=== PATIENT | female | born 1985 | race Caucasian/White ===

== ENCOUNTER 2017-08-16 07:32 | Inpatient (IN) ==
--- OUTSIDE RECORDS SUMMARY | 2017-08-16 07:41 | External Medical Summary | Referral Summary ---
:1985 Author Organization [facility] Address [address] [facility] [address] [place] [address] Care Team Providers Name Role Phone No PCP, [facility] Primary Care Physician Encounter [facility] [id number] Date(s): 09/24/15 - 09/24/15 [facility] [address] [place], [place] [address] Discharge Diagnosis: Discharge Disposition: 01-Home or Self Care Attending Physician: Christine Jimenez MD Admitting Physician: Christine Jimenez MD Vital Signs Most recent to oldest [Reference Range]: 1 Blood Pressure [90-140/60-90 mmHg] 120/82 mmHg (09/24/15 3:04 PM) Problem List Condition Effective Dates Status Health Status Informant Anemia(Confirmed) Active Bronchitis(Confirmed) Resolved Previous delivery, Active antepartum.(Confirmed) (Confirmed) 05/26/03 - 2004 Resolved (Confirmed) 01/10/15 Active Allergies, Adverse Reactions, Alerts No Known Medication Allergies Medications Colace Oral, BID, 0 Refill(s) Start Date: 03/20/15 Status: OrderedPrenatal Multivitamins oral tablet tabs, Oral, Daily, 0 Refill(s) Start Date: 03/20/15 Status: Ordered Results No data available for this section Immunizations Vaccine Date Refusal Reason tetanus/diphth/pertuss (Tdap) adult/adol 07/10/15 Procedures Procedure Date Related Diagnosis Body Site delivery Social History Social History Type Response Smoking Status Never smoker Assessment and Plan No data available for this section
--- OUTSIDE RECORDS SUMMARY | 2017-08-16 07:41 | External Medical Summary | Referral Summary ---
:1985 Author Organization [facility], [facility] Address [address] [facility] [address] [place] [address] Care Team Providers Name Role Phone No PCP, States Primary Care Physician Encounter [facility] [id number] Date(s): 10/01/15 - 10/01/15 [facility] [address] [place], [place] [address] Discharge Diagnosis: Discharge Disposition: 01-Home or Self Care Attending Physician: Christine Jimenez MD Admitting Physician: Christine Jimenez MD Vital Signs Most recent to oldest [Reference Range]: 1 Blood Pressure [90-140/60-90 mmHg] 118/78 mmHg (10/01/15 2:52 PM) Problem List Condition Effective Dates Status [...]
--- OUTSIDE RECORDS SUMMARY | 2017-08-16 07:41 | External Medical Summary | Continuity of Care Document ---
:1983 Author Organization [facility] Address [address] [place], [place] [address] Phone Support Name Relationship Address Phone Saroj Rose spouse [address] [phone] [place] [address] Allergies, Adverse Reactions, Alerts Substance Reaction Severity Status No Known Drug Allergies Unknown Active Medications Medication Instructions Dosage Effective Dates Status Comments (start - stop) 28 mg take 1 by Oral route Not Available - Active iron-800 mcg every day tablet Colace 100 mg take 1 capsule by 100 MG - Active capsule oral route every day at bedtime as needed Problems Condition Effective Dates (start - stop) Clinical Status Supervision of other high risk - pregnancies, third trimester Previous Low Transverse - Labor and delivery complicated by oth - cord comp, unsp 29 weeks gestation of - Previous Low Transverse - Encntr screen for infections w sexl - mode of transmiss Encounter for screening for oth - infec/parastc diseases Encounter for suprvsn of normal - , first trimester Encounter for screening of - mother 10 weeks gestation of - Supervision of other high risk - pregnancies, third trimester Labor and delivery complicated by oth - cord comp, unsp 31 weeks gestation of - Supervision of other high risk - pregnancies, third trimester Previous Low Transverse - Labor and delivery complicated by oth - cord comp, unsp 29 weeks gestation of - Previous Low Transverse - Encounter for suprvsn of normal - , second trimester 14 weeks gestation of - Previous Low Transverse - Labor and delivery complicated by oth - cord comp, unsp 23 weeks gestation of - Previous Low Transverse - Labor and delivery complicated by oth - cord comp, unsp Encounter for suprvsn of normal - , second trimester 27 weeks gestation of - Previous Low Transverse - Encounter for suprvsn of normal - , second trimester 18 weeks gestation of - Previous Low Transverse - Labor and delivery complicated by oth - cord comp, unsp Encounter for suprvsn of normal - , second trimester 23 weeks gestation of - Labor and delivery complicated by oth - cord comp, unsp 18 weeks gestation of - Procedures Procedure Date OB Visit No Charge Results Test Name Date and Time Measure Units Reference Range Abnormal Flag Comments Unknown Advance Directives Directive Yes / No Effective Date File Name Unknown Encounters Encounter Practice Location Reason(s) Diagnoses Date Provider Care Team Description For Visit Members Zoya Pal Supervision of Desi Referring In Womens other high risk 5-201 Susan. Provider: Taisha SHEIKH, pregnancies, 8 [address] third Medical Desi L, 1522, trimesterLabor Center [address] [place], and delivery [place], complicated by 120, Center [id number], ot cord Demarco [address], [place] unsp31 weeks Demarco HERBERT, tel: gestation of [phone] [place], [id number] , [place]. [id number]. tel: tel: [phone] Zoya Pal Supervision of Desi Referring In Womens other high risk 1-201 Susan. Provider: Taisha SHEIKH, pregnancies, 8 700 [address] third Medical Desi L, 1522, trimesterPrevious Center [address] [place], Low Transverse , [facility] Betzy HERBERT, C-SectionLabor 120, Center [id number], and delivery [place], [place] 120, [place] complicated by Demarco HERBERT, tel:+ oth cord comp, [id number] [place], unsp29 weeks , [place]. [id number]. gestation of tel: tel: [phone] Zoya Pal Supervision of Desi Referring In Womens Ultrasound other high risk 1-201 Susan. Provider: Health PA, pregnancies, 8 700 Susan [address] third Medical Desi L, 1522, trimesterPrevious Center [address] [place], Low Transverse , [facility] Betzy HERBERT, C-SectionLabor 120, [place] , and delivery [place], [place] 120, [place] complicated by Demarco HERBERT, tel: oth cord comp, [phone] [place], unsp29 weeks , [place]. [id number]. gestation of tel: tel:+ [phone] Zoya Pal Previous Low Mar-2 Desi Referring In Womens Transverse 6-201 Susan. Provider: Health PA, C-SectionLabor 8 700 Susan [address] and delivery Medical Desi L, 1522, complicated by Center [address] [place], spencer cord Dr ron, [facility] KEON, unspEncounter for 120, Center [id number], suprvsn of normal Demarco, [place] 120, [place] , second Demarco HERBERT, tel: [email or web address] weeks [phone] [place], gestation of , [place]. [id number]. tel: tel:+ [phone] Zoya Pal Previous Low Feb-2 Desi Referring In Womens Transverse 8-201 Susan. Provider: Health PA, C-SectionLabor 8 700 Susan [address] and delivery Medical Desi L, 1522, complicated by Center [address] [place], oth cord Dr ron, [facility] KEON, unspEncounter for 120, Center [id number], suprvsn of normal [place], [place] 120, [place] , second Demarco HERBERT, tel:+ [email or web address] weeks [phone] [place], gestation of , [place]. [id number]. tel: tel:[phone] Associates [facility] Previous Low Feb-2 Desi Referring In Womens Ultrasound Transverse 8-201 Susan. Provider: Taisha SHEIKH, C-SectionLabor 8 700 [address] and delivery Medical Desi L, 1522, complicated by Center [address] [place] [address], [facility] cord comp, , [facility] KEON, unsp23 weeks 120, Center [id number], gestation of [place], [facility] 120, [place] Demarco HERBERT, tel:[phone] [place], , [place]. [id number]. tel: tel:[phone] Associates [facility] Labor and Daniel-2 Sharma Referring In Womens delivery 4-201 Dianne. Provider: Taisha SHEIKH, complicated by 8 700 Susan [address] oth cord comp, Medical Desi L, 1522, unsp18 weeks Center [address] [place], gestation of Dr, [facility] KEON, 120, Center [id number], [facility] 120, [place] KEON Demarco, tel:[phone] [place], , [place]. [id number]. tel: tel:[phone] Zoya Pal Previous Low Daniel-2 Desi Referring In Womens Ultrasound Transverse 4-201 Susan. Provider: Taisha SHEIKH, C-SectionEncounte 8 700 Susan [address] r for suprvsn of Medical Desi L, 1522, normal , Center [address] [place] [address], second Dr [facility] KEON, [email or web address] weeks 120, Center [id number], gestation of [facility] 120, [place] KEON Demarco, tel:[phone] [place], , [place]. [id number]. tel: tel:[phone] Associates [facility] Previous Low Dec-2 Desi Referring In Womens Transverse 7-201 Susan. Provider: Taisha SHEIKH, C-SectionEncounte 7 700 [address] PO Box r for suprvsn of Medical Desi L, 1522, normal , Center [address] [place], [facility] , Johnson HERBERT, [id number] weeks 120, [place] [id number], [facility] [place] Demarco HERBERT, tel: [phone] [place], , [place]. [id number]. tel: tel: [phone] Associates [facility] Previous Low Nov- Desi Referring In Womens Transverse 7-201 Susan. Provider: [facility], C-SectionEncntr 7 700 [address] Box screen for Medical Desi L, 1522, infections w sexl Center [address] [place], mode of [place], transmissEncounte 120, [place] [id number], r for screening [facility] 120, [place] for oth Demarco HERBERT, tel: infec/parastc [phone] [place], [facility] , [place]. [id number]. for suprvsn of tel: tel:316 normal , [phone] first trimesterEncounte r for screening of [id number] weeks gestation of Family History Family Member Diagnosis Age At Onset No family history of Colon Cancer No family history of Diabetes No family history of Breast Cancer No family history of Osteoporosis No family history of Pulmonary Embolism No family history of Cardiovascular Disease Father Thyroid Disorder No family history of Venous Thrombosis No family history of Lung Disease No family history of Epilepsy No family history of Uterine Cancer No family history of Stroke No family history of Kidney Disease No family history of Hypertension No family history of Ovarian Cancer Immunizations Vaccine Date Status Comments Tdap completed Source: New Immunization Record Influenza, injectable, completed Source: Public Agency quadrivalent, preservative free, 3 yrs or older Payers Payer name Insurance type Covered republican ID Authorization(s) [facility] [id number] [facility] [id number] Social History Type Description Quantity Date Captured Alcohol Use Details No Caffeine Use Details Unknown Tobacco Use Status Unknown Smoking Status Never smoker Vital Signs Date / Height Weight BMI Pulse Blood Temperature Respiratory Body Head BMI Time: Rate Pressure Rate Surface Circumference percentile Area 177.80 31.6 115/79 lbs 9 mm[Hg] 2:43 kg/m PM eter (2) Chief Complaint And Reason For Visit Unknown Chief Complaint And Reason For Visit Reason For Referral Reason For Referral Unknown Plan Of Care Date Type Action Status Appointment Robina Rose BOOKED Appointment Robina Rose BOOKED Appointment Robina Rose BOOKED Appointment Robina Rose BOOKED Future Order: Radiology Order Ultrasound OB Follow-up ([id number]) Ordered Future Order: Radiology Order Ultrasound, OB Limited ([id number]) Ordered Future Order: Radiology Order Complete OB Ultrasound > 14 Ordered Weeks ([id number]) Date Type Problem Goal Intervention Status Start Date Unknown. History Of Present Illness Encounter Date Complaint History Of Present Illness This patient has no known history of present illness Functional Status Encounter Date Functional Assessment Cognitive Assessment Unknown Medications Administered Medication Instructions Dosage Effective Dates (start - stop) Status Comments Drug Treatment Unknown Instructions Date Instruction Additional Information HIV and other routine tests risk factors identified by history anticipated course of care nutrition and weight gain counseling, special diet toxoplasmosis precautions (cats / raw meat) sexual activity exercise indications for ultrasound influenza vaccine environmental / work hazards travel tobacco (ask, advise, assess, assist and arrange) alcohol illicit / recreational drugs use of any medications (including supplements, vitamins, herbs, OTC drugs) smoking counseling domestic violence seat belt use childbirth classes / hospital facilities hospital registration genetic testing risks Zika virus assessment & precautions new ob handbook [facility] docs
--- OUTSIDE RECORDS SUMMARY | 2017-08-16 07:41 | External Medical Summary | Referral Summary ---
:1985 Author Organization [facility] Address [address] [facility] [address] [place] [address] Care Team Providers Name Role Phone Aneesh Yvonne Sampson Primary Care Physician Encounter [facility] Date(s): 07/26/15 - 07/26/15 [facility] [address] [facility] [facility] [address] [place] [address]- Discharge Diagnosis: Discharge Disposition: 01-Home or Self Care Attending Physician: Christine Jimenez MD Admitting Physician: Christine Jimenez MD Referring Physician: Christine Jimenez MD Vital Signs Most recent to oldest [Reference Range]: 1 Blood Pressure [90-140/60-90 mmHg] 118/70 mmHg (07/26/15 3:25 PM) Problem List Condition Effective Dates Status [...]
--- OUTSIDE RECORDS SUMMARY | 2017-08-16 07:41 | External Medical Summary | Continuity of Care Document ---
:1983 Author Organization [facility] Address [address] [place], [place] [id number] Phone Support Name Relationship Address Phone Saroj Rose spouse [address] [phone] [place] [address] Allergies, Adverse Reactions, Alerts Substance Reaction Severity [...] Effective Dates (start - stop) Clinical Status Previous Low Transverse - Encntr screen for infections w sexl - mode of transmiss Encounter for screening for oth - infec/parastc diseases Encounter for suprvsn of normal - , first trimester Encounter for screening of - mother 10 weeks gestation of - Procedures Procedure Date Unknown Results Test Name Date and Time Measure Units Reference Range Abnormal Flag Comments Unknown Advance Directives Directive Yes / No Effective Date File Name Unknown Encounters Encounter Practice Location Reason(s) Diagnoses Date Provider Care Team Description For Visit Members Zoya Pal Dec-0 Desi In Womens 4-201 Susan. Health [facility], 7 700 [address] Medical [address], [place] [address] Nimisha, [facility] [place], 120, [id number], [facility] [place], tel:[phone] , [place]. tel: [phone] Zoya Pal Previous Low Nov-2 Desi Referring In Womens Transverse 7-201 Susan. Provider: Health [facility] C-SectionEncntr 7 700 Susan [address] screen for Medical Desi L, 1522, infections w sexl Center [address] [place], [place] of [place] Medical KEON, transmissEncounter 120, [place] [id number], for screening for Demarco [facility] 120, oth infec/parastc KEON Demarco, tel: diseasesEncounter [phone] [place] [address] for suprvsn of , [place]. [id number]. normal , tel: tel: first [phone] trimesterEncounter for screening of [id number] weeks gestation of Family History Family Member [...] Ovarian Cancer Immunizations Vaccine Date Status Comments Influenza, injectable, quadrivalent, completed Source: Public [facility] preservative free, 3 yrs or older Payers Payer name Insurance type Covered republican ID Authorization(s) [facility] [id number] Social History Type Description Quantity Date Captured Unknown Vital Signs Date / Height Weight BMI Pulse Blood Temperature Respiratory Body Head BMI Time: Rate Pressure Rate Surface Circumference percentile Area Unknown Chief Complaint And Reason For Visit Unknown Chief Complaint And Reason For Visit Reason For Referral Reason For Referral Unknown Plan Of Care Date Type Action Status Appointment Robina Rose BOOKED Date Type Problem Goal Intervention Status Start [...]
--- OUTSIDE RECORDS SUMMARY | 2017-08-16 07:41 | External Medical Summary | Continuity of Care Document ---
:1983 Author Organization [facility] Address [address] [place], [place] [address] Phone Support Name Relationship Address Phone Saroj Rose spouse [address] [phone] [place] [address] Allergies, Adverse Reactions, Alerts Substance Reaction Severity [...] comp, unsp 29 weeks gestation of - Supervision of other [...] Provider Care Team Description For Visit Members Zyoa Pal Supervision of Desi Referring In Womens other high risk 5-201 Susan. Provider: [facility], pregnancies, 8 700 Susan [address] third Medical Desi L, 1522, trimesterLabor Center [address] [place] [address], and delivery Dr [facility], complicated by 120, [place] [id number], [place] cord comp, Demarco [facility] 120, [place] unsp31 weeks Demarco HERBERT, tel: gestation of [phone] [place], [id number] , [place]. [id number]. tel: tel: [phone] Zoya Pal Desi In Womens 6-201 Susan. [facility], 8 700 [address] Medical 1522, [facility], Dr [facility], 120, [id number], [place], [place], tel:[phone] , [place]. tel: [phone] Zoya Pal Supervision of Desi Referring In Womens other high risk 1-201 Susan. Provider: Taisha SHEIKH, pregnancies, 8 700 Susan [address] third Medical Desi L, 1522, trimesterPrevious Center 700 [place], Low Transverse , [facility] Betzy HERBERT, C-SectionLabor 120, Center [id number], and delivery [place], [facility] 120, [place] complicated by Demarco HERBERT, tel:+ ot cord comp, [phone] [place], unsp29 weeks , [place]. [id number]. gestation of tel: tel: [phone] Zoya Pal Supervision of May- Desi Referring In Womens Ultrasound other high risk 1-201 Susan. Provider: aTisha SHEIKH, pregnancies, 8 700 Susan [address] third Medical Desi L, 1522, trimesterPrevious Center [address] [place], Low Transverse , [facility] Betzy HERBERT, C-SectionLabor 120, [place] [id number], and delivery [facility] 120, [place] complicated by Demarco HERBERT, tel: ot cord comp, [phone] [place], unsp29 weeks , [place]. [id number]. gestation of tel: tel:+ [phone] Zoya Pal Previous Low Mar-2 Desi Referring In Womens Transverse 6-201 Susan. Provider: Taisha SHEIKH, C-SectionLabor 8 700 Susan [address] Box and delivery Medical Desi L, 1522, complicated by Center [address] [place], ot cord comp, Dr [facility] Betzy HERBERT, unspEncounter for 120, [place] [id number], suprvsn of normal [place], [place] 120, [place] , second Demarco HERBERT, tel: [email or web address] weeks [id number] [place], gestation of , [place]. [id number]. tel: tel:+ [phone] Zoya Pal Previous Low Feb-2 Desi Referring In Womens Transverse 8-201 Susan. Provider: Taisha SHEIKH, C-SectionLabor 8 700 Susan [address] and delivery Medical Deis L, 1522, complicated by Center 700 [place], spencer cord Dr ron, [facility] Betzy HERBERT, unspEncounter for 120, Center [id number], suprvsn of normal [place], [place] 120, [place] , second Demarco HERBERT, tel: [email or web address] weeks [id number] [place], gestation of , [place]. [id number]. tel: tel:[phone] Associates [facility] Previous Low Feb-2 Desi Referring In Womens Ultrasound Transverse 8-201 Susan. Provider: Health KORI, C-SectionLabor 8 700 Susan [address] and delivery Medical Desi L, 1522, complicated by Center [facility] Nimisha, [address], [facility] Betzy HERBERT, unsp23 weeks 120, Center [id number], gestation of [place], [facility] 120, [place] Demarco HERBERT, tel:[phone] [place], , [place]. [id number]. tel: tel:[phone] [facility] Labor and Mar- Sharma Referring In Womens delivery 4-201 Dianne. Provider: Taisha SHEIKH, complicated by 8 700 Susan [address] spencer cord comp, Medical Desi L, 1522, unsp18 weeks Center [facility] Nimisha, gestation of Dr, [facility] Betzy HERBERT, 120, Center [id number], [facility] 120, [place] Demarco HERBERT, tel:[phone] [place], , [place]. [id number]. tel: tel:[phone] Associates [facility] Previous Low Mar-2 Desi Referring In Womens Ultrasound Transverse 4-201 Susan. Provider: Taisha SHEIKH, C-SectionEncounte 8 700 Susan PO Box r for suprvsn of Medical Desi L, 1522, normal , Center [facility] Nimisha, second , [facility] Betzy HERBERT, [email or web address] weeks 120, Center [id number], gestation of [place], [facility] 120, [place] Demarco HERBERT, tel:[phone] [place], , [place]. [id number]. tel: tel: [phone] Associates [facility] Previous Low Dec-2 Desi Referring In Womens Transverse 7-201 Susan. Provider: Taisha SHEIKH, C-SectionEncounte 7 700 Susan PO Box r for suprvsn of Medical Desi L, 1522, normal , Center 700 [place], [facility] , Johnson HERBERT, [email or web address] weeks 120, [place] [id number], gestation of [facility] 120, [place] Demarco HERBERT, tel: [phone] [place], , [place]. [id number]. tel: tel: [phone] Associates Pal Previous Low Nov-2 Desi Referring In Womens Transverse 7-201 Susan. Provider: Taisha SHEIKH, C-SectionEncntr 7 700 Susan [address] screen for Medical Desi L, 1522, infections w sexl Center [address] [place], mode of [place], transmissEncounte 120, [place] [id number], r for screening [facility] 120, [place] for oth Demarco HERBERT, tel: infec/parastc [phone] [place], [facility] [place] , . [id number]. for suprvsn of tel: tel:[phone] normal , [phone] first trimesterEncounte r for screening of weeks gestation of Family History Family Member [...] older Payers Payer name Insurance type Covered green party ID Authorization(s) [facility] [id number] [facility] [id number] Social History Type Description Quantity Date Captured [...] Future Order: Radiology Order Ultrasound OB Follow-up ([id number]) Ordered Future Order: Radiology Order Ultrasound, OB Limited ([id number]) Ordered Future Order: Radiology Order Complete OB Ultrasound > 14 Ordered Weeks ([id number]) Date Type Problem Goal Intervention Status Start [...]
--- OUTSIDE RECORDS SUMMARY | 2017-08-16 07:41 | External Medical Summary | Referral Summary ---
:1983 Author Organization [facility] Address [address] [place] [address] Care Team Providers Name Role Phone Aneesh Yvonne Sampson Primary Care Physician Encounter [facility] [id number] Date(s): 05/01/15 - 05/01/15 [facility] [address] [facility] [address] [place], [place] [address] Discharge Diagnosis: care Discharge Disposition: -Home or Self Care Attending Physician: Christine Jimenez MD Vital Signs Most recent to oldest [Reference Range]: 1 Blood Pressure [90-140/60-90 mmHg] 106/74 mmHg (05/01/15 3:02 PM) Problem List Condition Effective Dates Status Health Status Informant Anemia(Confirmed) Active Bronchitis(Confirmed) Resolved (Confirmed) 05/26/03 - 2004 Resolved Allergies, Adverse Reactions, Alerts No Known Medication Allergies Medications Colace Oral, BID, 0 Refill(s) Start Date: 03/20/15 Status: OrderedPrenatal Multivitamins oral tablet tabs, Oral, Daily, 0 Refill(s) Start Date: 03/20/15 Status: Ordered Results No data available for this section Immunizations No data available for this section Procedures Procedure Date Related Diagnosis Body Site delivery Social History Social History Type Response Smoking Status Never smoker Assessment and Plan No data available for this section
--- OUTSIDE RECORDS SUMMARY | 2017-08-16 07:41 | External Medical Summary | Continuity of Care Document ---
:1985 Author Organization [facility] [employer] Address [address] [place], [place] [id number] Phone Support Name Relationship Address Phone Saroj Rose spouse [address] [phone] [place] [address] Allergies, Adverse Reactions, Alerts Substance Reaction Severity [...] stop) Clinical Status Previous Low Transverse - Labor and delivery complicated by oth - cord comp, unsp 23 weeks gestation of - Previous Low Transverse - Encntr screen for infections w sexl - mode of transmiss Encounter for screening for oth - infec/parastc diseases Encounter for suprvsn of normal - , first trimester Encounter for screening of - mother 10 weeks gestation of - Previous Low Transverse [...] weeks gestation of - Procedures Procedure Date Ultrasnd exam, preg uterus, limited Echo exam of heart Doppler color flow mapping Results Test Name Date and Time Measure Units Reference Range Abnormal Flag Comments Unknown Advance Directives Directive Yes / No Effective Date File Name Unknown Encounters Encounter Practice Location Reason(s) Diagnoses Date Provider Care Team Description For Visit [facility] Previous Low Feb-2 Desi Referring In Womens Transverse 8-201 Susan. Provider: Taisha SHEIKH, C-SectionLabor 8 700 Susan PO Box and delivery Medical Desi L, 1522, complicated by Center [address] [place], [address], [facility] Betzy HERBERT, unspEncounter for 120, Center [id number], suprvsn of normal [place], [place] 120, [place] , second Demarco HERBERT, tel:+ [id number] weeks [phone] [place], gestation of , [place]. [id number]. tel: tel: [phone] [facility] Previous Low Feb-2 Desi Referring In Womens Ultrasound Transverse 8-201 Susan. Provider: Taisha SHEIKH, C-SectionLabor 8 700 Susan PO Box and delivery Medical Desi L, 1522, complicated by Center [address] [place], [address], [facility] KEON, unsp23 weeks 120, [place] [id number], gestation of Demarco Johnson 120, [place] Demarco HERBERT, tel: [phone] [place], , [place]. [id number]. tel: tel:[phone] [facility] Labor and Sharma Referring In Womens delivery 4-201 Dianne. Provider: Taisha SHEIKH, complicated by 8 700 Susan PO Box oth cord comp, Medical Desi L, 1522, unsp18 weeks Center Enoc [place], gestation of [place], 120, Center [id number], Demarco [place] 120, [place] Demarco HERBERT, tel:+ [phone] [place], , [place]. [id number]. tel: tel:[phone] [facility] Previous Low Daniel-2 Desi Referring In Womens Ultrasound Transverse 4-201 Susan. Provider: Taisha SHEIKH, C-SectionEncounte 8 700 Susan PO Box r for suprvsn of Medical Desi L, 1522, normal , Center [address] [place], [place] [address]ta, [facility] Johnson [place], [email or web address] weeks 120, Center , gestation of [place], [facility] 120, [place] Demarco HERBERT, tel:[phone] [place], , [place]. [id number]. tel: tel:[phone] [facility] Previous Low Dec-2 Desi Referring In Womens Transverse 7-201 Susan. Provider: Taisha SHEIKH, C-SectionEncounte 7 700 Susan PO Box r for suprvsn of Medical Desi L, 1522, normal , Center [address] [place] [address], [facility] Johnson [place], [email or web address] weeks 120, Center [id number], gestation of [facility] 120, [place] Demarco HERBERT, tel:[phone] [place], , [place]. [id number]. tel: tel:[phone] [facility] Previous Low Nov-2 Desi Referring In Womens Transverse 7-201 Susan. Provider: Taisha SHEIKH, C-SectionEncntr 7 700 Susan PO Box screen for Medical Desi L, 1522, infections w sexl Center [address] [place] [address], mode of [place], transmissEncounte 120, Center [id number], r for screening [facility] 120, [place] for oth Demarco HERBERT, tel:+ infec/parastc [phone] [place], [facility] Center[facility] , [place]. [id number]. for suprvsn of tel: tel:[phone] normal , [phone] first trimesterEncounte r for screening of [email or web address] weeks gestation of Family History Family Member [...] older Payers Payer name Insurance type Covered libertarian ID Authorization(s) [facility] [place] [id number] Social History Type Description Quantity Date Captured Unknown Vital Signs Date / Height Weight BMI Pulse Blood Temperature Respiratory Body Head BMI Time: Rate Pressure Rate Surface Circumference percentile Area Unknown Chief Complaint And Reason For Visit Unknown Chief Complaint And Reason For Visit Reason For Referral Reason For Referral Unknown Plan Of Care Date Type Action Status Appointment Robina Rose BOOKED Future Order: Radiology Order Ultrasound, OB Limited ([id number]) Ordered Future Order: Radiology Order Complete OB Ultrasound > 14 Ordered Weeks ([id number]) Date Type Problem Goal Intervention Status Start [...]
--- OUTSIDE RECORDS SUMMARY | 2017-08-16 07:41 | External Medical Summary | Referral Summary ---
:1983 Author Organization [facility] Address [address] [facility] [address] [place] [address] Care Team Providers Name Role Phone Edenluz marina Yvonne Sampson Primary Care Physician Encounter [facility] Date(s): 09/03/15 - 09/03/15 [facility] [address] [facility] [address] [place] [address]- Discharge Diagnosis: Discharge Disposition: 01-Home or Self Care Attending Physician: Christine Jimenez MD Admitting Physician: Christine Jimenez MD Vital Signs Most recent to oldest [Reference Range]: 1 Blood Pressure [90-140/60-90 mmHg] 124/80 mmHg (09/03/15 3:00 PM) Problem List Condition Effective Dates Status [...]
--- OUTSIDE RECORDS SUMMARY | 2017-08-16 07:41 | External Medical Summary | Continuity of Care Document ---
:1983 Author Organization [facility] Address [address] [place], [place] [address] Phone Support Name Relationship Address Phone Saroj Rose spouse [address] [phone] [place] [address] Allergies, Adverse Reactions, Alerts Substance Reaction Severity [...] comp, unsp 31 weeks gestation of - Previous Low Transverse [...] gestation of - Procedures Procedure Date Ultrasnd preg uterus, flwup/repeat Results Test Name Date and Time Measure Units Reference Range Abnormal Flag Comments Unknown Advance Directives Directive Yes / No Effective Date File Name Unknown Encounters Encounter Practice Location Reason(s) Diagnoses Date Provider Care Team Description For Visit Members Zoya Pal Supervision of Desi Referring In Womens other high risk 5-201 Susan. Provider: Taisha SHEIKH, pregnancies, 8 700 Susan PO Box [facility]ria Medical Desi L, 1522, trimesterLabor Center [address] [place], and delivery [place], complicated by 120, Center [id number], ot cord Demarco [address], [place] unsp31 weeks Demarco HERBERT, tel: gestation of [phone] [place], [address] , [place]. [id number]. tel: tel: [phone] [facility] Supervision of eDsi Referring In Womens other high risk 1-201 Susan. Provider: Taisha SHEIKH, pregnancies, 8 700 [address] PO Box third Medical Desi L, 1522, trimesterPrevious Center [address] [place], Low Transverse , [facility] Betzy HERBERT, C-SectionLabor 120, Center [id number], and delivery [place], [place] 120, [place] complicated by Demarco HERBERT, tel:+ oth cord comp, [phone] [place], unsp29 weeks , [place]. [id number]. gestation of tel: tel:+ [phone] Zoya Pal Supervision of Desi Referring In Womens Ultrasound other high risk 1-201 Susan. Provider: Health PA, pregnancies, 8 700 Susan PO Box third Medical Desi L, 1522, trimesterPrevious Center [address] [place], Low Transverse , [facility] Betzy HERBERT, C-SectionLabor 120, Center [id number], and delivery [place], [place] 120, [place] complicated by Demarco HERBERT, tel:+ oth cord comp, [phone] [place], unsp29 weeks , [place]. [id number]. gestation of tel:+03-31 tel:[phone] Zoya Pal Previous Low Mar-2 Desi Referring In Womens Transverse 6-201 Susan. Provider: Health PA, C-SectionLabor 8 700 [place] PO Box and delivery Medical Desi L, 1522, complicated by Center [address] [place], [address], [facility] KEON, unspEncounter for 120, Center [id number], suprvsn of normal Demarco, [place] 120, [place] , second Demarco HERBERT, tel:+ [email or web address] weeks [phone] [place], gestation of , [place]. [id number]. tel: tel:+ [phone] Zoya Pal Previous Low Feb-2 Desi Referring In Womens Transverse 8-201 Susan. Provider: Health PA, C-SectionLabor 8 700 Susan PO Box and delivery Medical Desi L, 1522, complicated by Center [address] [place], spencer cord Dr ron, [facility] KEON, unspEncounter for 120, Center [id number], suprvsn of normal [place], [place] 120, [place] , second Demarco HERBERT, tel:+ [email or web address] weeks [id number] [place], gestation of , [place]. [id number]. tel: tel:[phone] [facility] Previous Low Feb-2 Desi Referring In Womens Ultrasound Transverse 8-201 Susan. Provider: Taisha SHEIKH, C-SectionLabor 8 700 [place] PO Box and delivery Medical Desi L, 1522, complicated by Center [address] [place], [facility] cord comp, , [facility] KEON, unsp23 weeks 120, Center [id number], gestation of [place], [facility] 120, [place] Demarco HERBERT, tel:[phone] [place], , [place]. [id number]. tel: tel:[phone] [facility] Labor and Daniel-2 Sharma Referring In Womens delivery 4-201 Dianne. Provider: Taisha SHEIKH, complicated by 8 700 [place] PO Box oth cord comp, Medical Desi L, 1522, unsp18 weeks Center [address] [place], gestation of Dr, [facility] KEON, 120, Center [id number], [facility] 120, [place] Demarco HERBERT, tel:[phone] [place], , [place]. [id number]. tel: tel:[phone] Zoya Pal Previous Low Daniel-2 Desi Referring In Womens Ultrasound Transverse 4-201 Susan. Provider: Taisha SHEIKH, C-SectionEncounte 8 700 [place] PO Box r for suprvsn of Medical Desi L, 1522, normal , Center [address] [place], [facility] , [facility] KEON, [id number] weeks 120, Center [id number], gestation of [place], [facility] 120, [place] Demarco HERBERT, tel:[phone] [place], , [place]. [id number]. tel: tel:[phone] [facility] Previous Low Dec-2 Desi Referring In Womens Transverse 7-201 Susan. Provider: Taisha SHEIKH, C-SectionEncounte 7 700 [place] PO Box r for suprvsn of Medical Desi L, 1522, normal , Center [address] [place], second [place], [email or web address] weeks 120, [place] [id number], [facility], [place] Demarco HERBERT, tel: [phone] [place], , [place]. [id number]. tel: tel: [phone] [facility] Previous Low Desi Referring In Womens Transverse 7-201 Susan. Provider: Health PA, C-SectionEncntr 7 700 Susan PO Box screen for Medical Desi L, 1522, infections w sexl Center [address] [place], mode of [place], transmissEncounte 120, [place] [id number], r for screening [facility] 120, for oth Demarco HERBERT, tel: infec/parastc [phone] [place], [facility] , . [id number]. for suprvsn of tel: tel: normal , [phone] first trimesterEncounte r for screening of [email or web address] weeks gestation of Family History Family Member [...] name Insurance type Covered republican ID Authorization(s) [facility] [id number] [facility] [id number] Social History Type Description Quantity Date Captured [...] Future Order: Radiology Order Ultrasound OB Follow-up ([id number]) Ordered Future Order: Radiology Order Ultrasound, OB Limited ([id number]) Ordered Future Order: Radiology Order Complete OB Ultrasound > 14 Ordered Weeks ([id number]) Date Type Problem Goal Intervention Status Start [...]
--- OUTSIDE RECORDS SUMMARY | 2017-08-16 07:42 | External Medical Summary | Referral Summary ---
:1983 Author Organization [facility] Address [address] [facility] [address] [place] [address] Care Team Providers Name Role Phone Aneesh Yvonne Sampson Primary Care Physician Encounter [facility] Date(s): 09/10/15 - 09/10/15 [facility] [address] [facility] [address] [place] [address]- Discharge Diagnosis: Discharge Disposition: 01-Home or Self Care Attending Physician: Christine Jimenez MD Admitting Physician: Christine Jimenez MD Vital Signs Most recent to oldest [Reference Range]: 1 Blood Pressure [90-140/60-90 mmHg] 110/64 mmHg (09/10/15 2:54 PM) Problem List Condition Effective Dates Status [...]
--- OUTSIDE RECORDS SUMMARY | 2017-08-16 07:42 | External Medical Summary | Referral Summary ---
:1983 Author Organization [facility] Address [address] [place] [address] Care Team Providers Name Role Phone Aneesh Yvonne Sampson Primary Care Physician Encounter [facility] [id number] Date(s): 06/05/15 - 06/05/15 [facility] [address] [facility] [address] [place], [place] [address] Discharge Diagnosis: Discharge Disposition: 01-Home or Self Care Attending Physician: Christine Jimenez MD Admitting Physician: Christine Jimenez MD Vital Signs Most recent to oldest [Reference Range]: 1 Blood Pressure [90-140/60-90 mmHg] 118/68 mmHg (06/05/15 2:52 PM) Problem List Condition Effective Dates [...]
--- OUTSIDE RECORDS SUMMARY | 2017-08-16 07:42 | External Medical Summary | Referral Summary ---
:1983 Author Organization [facility] Address [address] [place] [address] Care Team Providers Name Role Phone Yvonne Melendrez Primary Care Physician Encounter [facility] [id number] Date(s): 05/30/15 - 05/30/15 [facility] [address] [facility] [address] [place] [address] [place] Discharge Diagnosis: Encounter for anatomic survey Discharge Diagnosis: Previous delivery, antepartum. Discharge Disposition: -Home or Self Care Attending Physician: John Mcdonald MD Admitting Physician: John Mcdonald MD Referring Physician: Christine Jimenez MD Vital Signs Most recent to oldest [Reference Range]: 1 Peripheral Pulse Rate [60-100 bpm] 86 bpm (05/30/15 4:06 PM) Blood Pressure [90-140/60-90 mmHg] 118/68 mmHg (05/30/15 4:06 PM) Problem List Condition Effective Dates Status [...] Smoking Status Never smoker Assessment and Plan Extracted from: Title: Office Visit Note Author: John Mcdonald MD Date: 05/30/15 Assessment/Plan Encounter for anatomic survey Results and limitation of exam discussed with patient. No additional follow up requested. Previous delivery, antepartum. TOLAC vs RLTCS as desired. Thank you for allowing me to participate in this patient's care and evaluation. I spent5 minutes [id number] with the patient at the time of this appointment of which greater than 50 percent was spent counseling and coordinating care.
--- OUTSIDE RECORDS SUMMARY | 2017-08-16 07:42 | External Medical Summary | Referral Summary ---
:1983 Author Organization [facility] Address [address] [facility] [address] [place] [address] Care Team Providers Name Role Phone No PCP, [facility] [place] [facility] Primary Care Physician Encounter [facility] [id number] Date(s): 10/08/15 - 10/08/15 [facility] [address] [facility] [address] [place] [address]- Discharge Diagnosis: Discharge Disposition: 01-Home or Self Care Attending Physician: Christine Jimenez MD Admitting Physician: Christine Jimenez MD Vital Signs Most recent to oldest [Reference Range]: 1 Blood Pressure [90-140/60-90 mmHg] 132/82 mmHg (10/08/15 2:54 PM) Problem List Condition Effective Dates [...]
--- OUTSIDE RECORDS SUMMARY | 2017-08-16 07:42 | External Medical Summary | Referral Summary ---
:1983 Author Organization [facility] Address [address] [place] [address] Care Team Providers Name Role Phone Aneesh Yvonne Sampson Primary Care Physician Encounter [facility] [id number] Date(s): 04/05/15 - 04/05/15 [facility] [address] [facility] [address] [place] [address]- Discharge Diagnosis: First trimester screening Discharge Diagnosis: Previous delivery, antepartum Discharge Disposition: -Home or Self Care Attending Physician: John Mcdonald MD Admitting Physician: John Mcdonald MD Referring Physician: Christine Jimenez MD Vital Signs Most recent to oldest [Reference Range]: 1 Blood Pressure [90-140/60-90 mmHg] 128/75 mmHg (04/05/15 9:33 AM) Problem List Condition Effective Dates Status Health [...]
--- OUTSIDE RECORDS SUMMARY | 2017-08-16 07:42 | External Medical Summary | Continuity of Care Document ---
:1983 Author Organization [facility] [facility] Address [address] [place], [place] [address] Phone Support Name Relationship Address Phone Saroj Rose spouse [address] [phone] [place] [address] Allergies, Adverse Reactions, Alerts Substance Reaction Severity [...] second trimester 23 weeks gestation of - Previous Low [...] second trimester 18 weeks gestation of - Labor and delivery [...] For Visit Members [facility] Previous Low Apr-2 Desi Referring In Womens Transverse 8-201 Susan. Provider: Taisha SHEIKH, C-SectionLabor 8 700 [place] PO Box and delivery Medical Desi L, 1522, complicated by [place] [address], [facility] Betzy HERBERT, unspEncounter for 120, [place] [id number], suprvsn of normal [place], [facility] 120, [place] , second Demarco HERBERT, tel: [email or web address] weeks [place], gestation of , [place]. [id number]. tel: tel: [phone] [facility] Previous Low b-2 Desi Referring In Womens Ultrasound Transverse 8-201 Susan. Provider: Taisha SHEIKH, C-SectionLabor 8 700 [place] PO Box and delivery Medical Desi L, 1522, complicated by Center 700 [place], [address], [place] HERBERT, unsp23 weeks 120, [place] [id number], gestation of [facility] 120, [place] Demarco HERBERT, tel:[phone] [place], , [place]. [id number]. tel: tel:[phone] [facility] Labor and Sharma Referring In Womens delivery 4-201 Dianne. Provider: Taisha SHEIKH, complicated by 8 700 [place] PO Box oth cord comp, Medical Desi L, 1522, unsp18 weeks Center [address] [place], gestation of [place], 120, Center [id number], [facility], [place] Demarco HERBERT, tel:[phone] [place], , [place]. [id number]. tel: tel:+ [phone] [facility] Previous Low Daniel-2 Desi Referring In Womens Ultrasound Transverse 4-201 Susan. Provider: Taisha SHEIKH, C-SectionEncounte 8 700 [place] PO Box r for suprvsn of Medical Desi L, 1522, normal , Center [address] [place], [place] [address]ta, [facility] Johnson [place], [id number] weeks 120, Center , gestation of [facility] 120, [place] Demarco HERBERT, tel: [phone] [place], , [place]. [id number]. tel: tel:[phone] [facility] Previous Low Dec-2 Desi Referring In Womens Transverse 7-201 Susan. Provider: Taisha SHEIKH, C-SectionEncounte 7 700 Susan PO Box r for suprvsn of Medical Desi L, 1522, normal , Center [address] [place] [address], [facility] Johnson [place], [email or web address] weeks 120, [place] , gestation of [facility] 120, [place] Demarco HERBERT, tel:+ [phone] [place], , [place]. [id number]. tel: tel:[phone] [facility] Previous Low Nov-2 Desi Referring In Womens Transverse 7-201 Susan. Provider: Taisha SHEIKH, C-SectionEncntr 7 700 Susan PO Box screen for Medical Desi L, 1522, infections w sexl Center [address] [place] [address], mode of [place], transmissEncounte 120, [place] [id number], r for screening [facility] 120, [place] for oth Demarco HERBERT, tel: infec/parastc [phone] [place], [facility] , . [id number]. for suprvsn of tel: tel:[phone] normal , [phone] first trimesterEncounte r for screening of [id number] weeks gestation of Family History Family Member [...] older Payers Payer name Insurance type Covered constitution party ID Authorization(s) [facility] KEON [id number] Social History Type Description Quantity Date Captured Alcohol Use Details No Caffeine Use Details coffee 3 cups per day Tobacco Use Status Never smoked tobacco Smoking Status Never smoker Vital Signs Date [...] Future Order: Radiology Order Ultrasound, OB Limited ([id number]) Ordered Future Order: Radiology Order Complete OB Ultrasound > 14 Ordered Weeks ([id number]) Date Type Problem Goal Intervention Status Start [...]
--- OUTSIDE RECORDS SUMMARY | 2017-08-16 07:42 | External Medical Summary | Referral Summary ---
:1983 Author Organization [facility] Address [address] [facility] [address] [place] [address] Care Team Providers Name Role Phone No PCP, [facility] [place] Primary Care Physician Encounter [facility] [id number] Date(s): 09/17/15 - 09/17/15 [facility] [address] [facility] [address] [place] [address]- Discharge Diagnosis: Discharge Disposition: 01-Home or Self Care Attending Physician: Christine Jimenez MD Admitting Physician: Christine Jimenez MD Vital Signs Most recent to oldest [Reference Range]: 1 Blood Pressure [90-140/60-90 mmHg] 120/68 mmHg (09/17/15 3:16 PM) Problem List Condition Effective Dates Status [...]
--- OUTSIDE RECORDS SUMMARY | 2017-08-16 07:42 | External Medical Summary | Continuity of Care Document ---
:1985 Author Organization [facility] Address [address] [place], [place] [id number] Phone Support Name Relationship Address Phone Saroj Rose spouse [address] [phone] [place] [address] Allergies, Adverse Reactions, Alerts Substance Reaction Severity [...] weeks gestation of - Procedures Procedure Date Initial OB Visit No Charge - ETL TESTER OB Panel With An HIV Venpnctr fngr/heel/ear stick routne Urine Culture Infct antign, chlamydia trac, ampl Neisseria Gonorrhoeae, Amplification Results Test Name Date and Time Measure Units Reference Range Abnormal Flag Comments Panel Description: OBSTETRIC PANEL WHITE BLOOD CELL 6.0 Thousand/uL 3.8-10.8 N COUNT 16:29:00 RED BLOOD CELL 4.05 Million/uL 3.80-5.10 N COUNT 16:29:00 HEMOGLOBIN 13.2 g/dL 11.7-15.5 N 16:29:00 HEMATOCRIT 37.6 % 35.0-45.0 N 16:29:00 MCV 92.8 fL 80.0-100.0 N 16:29:00 MCH 32.6 pg 27.0-33.0 N 16:29:00 MCHC 35.1 g/dL 32.0-36.0 N 16:29:00 RDW 11.8 % 11.0-15.0 N 16:29:00 PLATELET COUNT 179 Thousand/uL 140-400 N 16:29:00 MPV 10.7 fL 7.5-12.5 N 16:29:00 ABSOLUTE 3972 cells/uL 3483-7114 N NEUTROPHILS 16:29:00 ABSOLUTE 1590 cells/uL 850-3900 N LYMPHOCYTES 16:29:00 ABSOLUTE 318 cells/uL 200-950 N MONOCYTES 16:29:00 ABSOLUTE 102 cells/uL 15-500 N EOSINOPHILS 16:29:00 ABSOLUTE 18 cells/uL 0-200 N BASOPHILS 16:29:00 NEUTROPHILS 66.2 % N 16:29:00 LYMPHOCYTES 26.5 % N 16:29:00 MONOCYTES 5.3 % N 16:29:00 EOSINOPHILS 1.7 % N 16:29:00 BASOPHILS 0.3 % N 16:29:00 ANTIBODY SCREEN, NO ANTIBODIES N RBC W/REFL ID, 16:29:00 DETECTED Reference range TITER AND AG No antibodies detected This assay is a screening test for the detection of red blood cell antibodies. The test is not to be used for pretransfusion screening or for the medical management of an alloimmunized . ABO GROUP O 16:29:00 RH TYPE RH(D) 16:29:00 POSITIVE RPR (DX) W/REFL NON-REACTIVE NON-REACTIV N TITER AND 16:29:00 E CONFIRMATORY TESTING HEPATITIS B NON-REACTIVE NON-REACTIV N SURFACE ANTIGEN 16:29:00 E RUBELLA ANTIBODY 5.25 index N Index (IGG) 16:29:00 Interpretation ----- <0.90 Not consistent with Immunity 0.90-0.99 Equivocal > or=1.00 Consistent with Immunity The presence of rubella IgG antibody suggests immunization or past or current infection withrubella virus.Test performed at [facility] [place] [address]Hgetqjk r: MIGUEL AHN DO,MPH Panel Description: HIV 1/2 ANTIGEN/ANTIBODY,FOURTH GENERATION W/RFL HIV NON-REACTIVE NON-REACTIVE N HIV-1 antigen and HIV-1/HIV- 2 antibodies were AG/AB, 16:29:00 notdetected. There is no laboratory evidence of 4TH GEN HIVinfection. PLEASE NOTE: This information has been disclosed toyou from records whose confidentiality may beprotected by state law. If your state requires suchprotection, then the state law prohibits you frommaking any further disclosure of the informationwithout the specific written consent of the personto whom it pertains, or as otherwise permitted by law.A general authorization for the release of medical orother information is NOT sufficient for this purpose. For additional information please refer tohttp://education.Budge/faq/OJC525(This link is being provided for informational/educational purposes only.) The performance of this assay has not been clinicallyvalidated in patients less than 2 years old. REPORT COMMENT:FASTING:NOTest performed at [facility] [place] [address]Jgjncfcy: MIGUEL AHN DO,MPH Panel Description: Bacteria identified in Urine by Culture CULTURE, URINE, 16:32:00 SEE NOTE CULTURE, URINE, ROUTINE ROUTINE MICRO NUMBER: [id number] TEST STATUS: FINAL SPECIMEN SOURCE: URINE, CLEAN CATCH SPECIMEN QUALITY: ADEQUATE RESULT: No GrowthREPORT COMMENT:RFASTING:UNKNOWNTest performed at [facility] [address]Nnhjftww: MIGUEL AHN DO,MPH Panel Description: CHLAMYDIA/N. GONORRHOEAE RNA, TMA CHLAMYDIA NOT DETECTED NOT DETECTED N TRACHOMATIS RNA, 16:30:00 TMA NEISSERIA NOT DETECTED NOT DETECTED N GONORRHOEAE RNA, 16:30:00 TMA [id number] SEE NOTE This test was 16:30:00 performed using the APTIMA COMBO2 Assay([employer] The analytical performance characteristics of this assay, when used to test SurePath specimens havebeen determined by [employer]. REPORT COMMENT:FASTING:UNKNO WNTest performed at [facility] [id number] [place] [address]Ckaltogc: MIGUEL AHN DO,MPH Panel Description: Pap Smear With HPV Reflex If ASCUS Document Pap Smear 15:00:00 See scanned report Advance Directives Directive Yes / No Effective Date File Name Unknown Encounters Encounter Practice Location Reason(s) Diagnoses Date Provider Care Team Description For Visit Members [facility] Carrasco [facility] Desi Referring In Womens Transverse 7-201 Susan. Provider: Health PA, C-SectionEncntr [address] screen for Medical Desi L, 1522, infections w sexl [address] [place], mode of [facility], transmissEncount 120, [place] [id number], for screening for [place] 120, [place] ot infec/parastc Demarco HERBERT, tel:+ diseasesEncounter [phone] [place], [phone] for suprvsn of , [place]. [id number]. normal , tel: tel: [facility] [phone] trimesterEncounter for screening of [id number] weeks gestation of Family History Family Member [...] Insurance type Covered constitution party ID Authorization(s) LEAH MCMANUS [id number] Social History Type Description Quantity Date Captured Alcohol Use Details No Caffeine Use Details coffee 3 cups per day Tobacco Use Status Never smoked tobacco Smoking Status Never smoker Non-Smoking Tobacco Use : No Details Available : No Details Available Details Vital Signs Date / Height Weight BMI Pulse Blood Temperature Respiratory Body Head BMI Time: Rate Pressure Rate Surface Circumference percentile Area 152.90 27.3 122/77 2017 lbs 0 mm[Hg] 4:35 kg/m PM eter (2) Chief Complaint And [...]
--- OUTSIDE RECORDS SUMMARY | 2017-08-16 07:42 | External Medical Summary | Continuity of Care Document ---
:1985 Author Organization [facility] Address [address] [place], [place] [address] Phone Support Name Relationship Address Phone Saroj Rose spouse [address] [phone] [place] [address] Allergies, Adverse Reactions, Alerts Substance Reaction Severity [...] stop) Clinical Status Previous Low Transverse - Encounter for suprvsn [...] Team Description For Visit Members Zoya [place] Previous Low Desi Referring In [facility] Transverse 7-201 Susan. Provider: Taisha SHEIKH, C-SectionEncounter [address] for suprvsn of Medical Desi L, 1522, normal , Center [address] [place], second [id number], [facility], weeks gestation of 120, Center [id number], Demarco, [place] 120, [place] Demarco HERBERT, tel: [phone] [place], , [place]. [id number]. tel: tel:[phone] [facility] Previous Low Desi Referring In Womens Transverse 7-201 Susan. Provider: [facility], C-SectionEncntr 7 [address] screen for Medical Desi L, 1522, infections w sexl Center [address] [place], mode of Dr, [facility] Betzy [place], transmissEncounter 120, Center [id number], for screening for Demarco, [place] 120, [place] oth infec/parastc Demarco HERBERT, tel: diseasesEncounter [phone] [place], for suprvsn of , [place]. [id number]. normal , tel: tel: first [phone] [facility] gestation of Family [...] type Covered constitution party ID Authorization(s) [facility] [id number] Social History Type Description Quantity Date Captured [...] Robina Rose BOOKED Appointment Robina Rose BOOKED Date Type Problem [...]
--- OUTSIDE RECORDS SUMMARY | 2017-08-16 07:42 | External Medical Summary | Referral Summary ---
:1985 Author Organization [facility] Address [address] [facility] [address] [place] [address] Care Team Providers Name Role Phone Aneesh Yvonne Sampson Primary Care Physician Encounter [facility] Date(s): 08/05/15 - 08/05/15 [facility] [address] [facility] [address] [place] [address]- Discharge Diagnosis: Supervision of normal Discharge Disposition: 01-Home or Self Care Attending Physician: Sherry Renee PA-C Admitting Physician: Sherry Renee PA-C Vital Signs Most recent to oldest [Reference Range]: 1 Blood Pressure [90-140/60-90 mmHg] 130/68 mmHg (08/05/15 3:11 PM) Problem List Condition Effective Dates Status [...]
--- OUTSIDE RECORDS SUMMARY | 2017-08-16 07:42 | External Medical Summary | Referral Summary ---
:1985 Author Organization [facility] Address [address] [facility] [address] [place] [address] Care Team Providers Name Role Phone Aneesh Yvonne Sampson Primary Care Physician Encounter [facility] [id number] Date(s): 03/20/15 - 03/20/15 [facility] [address] [place] [address]- Discharge Diagnosis: care Discharge Disposition: -Home or Self Care Attending Physician: Christine Jimenez MD Admitting Physician: Christine Jimenez MD Vital Signs Most recent to oldest [Reference Range]: 1 Blood Pressure [90-140/60-90 mmHg] 112/74 mmHg (03/20/15 3:20 PM) Problem List Condition Effective Dates Status Health Status Informant Anemia(Confirmed) Active Bronchitis(Confirmed) Resolved (Confirmed) 05/26/03 - 2004 Resolved Allergies, Adverse Reactions, Alerts No Known Medication Allergies Medications Colace Oral, BID, 0 Refill(s) Start Date: 03/20/15 Status: OrderedPrenatal Multivitamins oral tablet tabs, Oral, Daily, 0 Refill(s) Start Date: 03/20/15 Status: Ordered Results Hematology Most recent to oldest [Reference Range]: 1 WBC [4.8-10.8 10*3/uL] 6.3 10*3/uL (03/20/15 4:03 PM) RBC [4.00-5.20] 4.10 (03/20/15 4:03 PM) Hgb [12.0-16.0 gm/dL] 13.0 gm/dL (03/20/15 4:03 PM) Hct [37.0-47.0 %] 35.8 % *LOW* (03/20/15 4:03 PM) MCV [82.0-99.0 fL] 87.3 fL (03/20/15 4:03 PM) MCH [27.0-32.0 pg] 31.7 pg (03/20/15 4:03 PM) MCHC [32.0-36.0 gm/dL] 36.3 gm/dL *HI* (03/20/15 4:03 PM) RDW [11.5-14.5 %] 12.1 % (03/20/15 4:03 PM) Platelet [150-400 10*3/uL] 184 10*3/uL (03/20/15 4:03 PM) MPV [8.8-14.8 fL] 10.9 fL (03/20/15 4:03 PM) Immature Granulocytes [0.0-1.0 %] 0.0 % (03/20/15 4:03 PM) Neutrophils [51-75 %] 69 % (03/20/15 4:03 PM) Lymphocytes [20-46 %] 24 % (03/20/15 4:03 PM) Monocytes [4-11 %] 6 % (03/20/15 4:03 PM) Eosinophils [0-4 %] 2 % (03/20/15 4:03 PM) Basophils [0-2 %] 0 % (03/20/15 4:03 PM) Neutro Absolute [1.90-7.00 10*3] 4.33 10*3 (03/20/15 4:03 PM) Lymph Absolute [0.80-3.30 10*3] 1.50 10*3 (03/20/15 4:03 PM) Prentiss Absolute [0.30-1.00 10*3] 0.38 10*3 (03/20/15 4:03 PM) Eos Absolute [0.00-0.50 10*3] 0.10 10*3 (03/20/15 4:03 PM) Baso Absolute [0.00-0.20 10*3] 0.01 10*3 (03/20/15 4:03 PM) Chemistry Most recent to oldest [Reference Range]: 1 Hep Bs Ag Negative (03/20/15 4:03 PM) HIV 1 and 2 Abs Negative (03/20/15 4:03 PM) Urinalysis Most recent to oldest [Reference Range]: 1 UA Color Yellow (03/20/15 4:03 PM) UA Appear Clear (03/20/15 4:03 PM) UA pH [5.0-8.0] 6.0 (03/20/15 4:03 PM) UA Leuk Est [Negative] Negative (03/20/15 4:03 PM) UA Nitrite [Negative] Negative (03/20/15 4:03 PM) UA Protein [Negative] Negative (03/20/15 4:03 PM) UA Glucose [Negative] Negative (03/20/15 4:03 PM) UA Ketones [Negative] Negative (03/20/15 4:03 PM) UA Urobilinogen [<1.0 mg/dL] 0.2 mg/dL (03/20/15 4:03 PM) UA Bili [Negative] Negative (03/20/15 4:03 PM) UA Blood [Negative] Negative (03/20/15 4:03 PM) UA Spec Grav [1.003-1.030] 1.013 (03/20/15 4:03 PM) Type Clean Catch (03/20/15 4:03 PM) UA WBC [0-4] 0-2 (03/20/15 4:03 PM) UA RBC [0-4] 0-4 (03/20/15 4:03 PM) Epithelial Cells 0-2 (03/20/15 4:03 PM) Blood Bank Results Most recent to oldest [Reference Range]: 1 ABO/Rh O POS (03/20/15 4:03 PM) Antibody Screen Tube NEG (03/20/15 4:03 PM) Microbiology Reports TEST:Affirm Vaginitis Panel STATUS:Auth (Verified) BODY SITE: SOURCE:Vaginal COLLECTED DATE/TIME:03/20/15 4:03 PMAffirm Vaginitis PanelNegative for Trichomonas vaginalis Negative for Verito species Negative for Gardnerella vaginalis Immunizations No data available for this section Procedures Procedure Date Related Diagnosis Body Site delivery Social History Social History Type Response Smoking Status Never smoker Assessment and Plan No data available for this section
--- OUTSIDE RECORDS SUMMARY | 2017-08-16 07:42 | External Medical Summary | Continuity of Care Document ---
:1985 Author Organization [facility] Address [address] [place], [place] [address] Phone Support Name Relationship Address Phone Saroj Rose spouse [address] [phone] [place] [address] Allergies, Adverse Reactions, Alerts Substance Reaction Severity [...] Team Description For Visit Members [facility] Labor and Daniel-2 Sharma Referring In Womens delivery 4-201 Dianne. Provider: Taisha SHEIKH, complicated by [address] oth cord comp, Medical Desi L, 1522, [id number] weeks Center [facility] Nimisha, gestation of Dr [facility] Betzy HERBERT, 120, Center [id number], [place], [facility] 120, [place] KSDemarco, tel:+ [phone] [place], , [place]. [id number]. tel: tel:+[phone] [facility] Previous Low Daniel-2 Desi Referring In Womens Ultrasound Transverse 4-201 Susan. Provider: Taisha SHEIKH, C-SectionEncounte [address] r for suprvsn of Medical Desi L, 1522, normal , Center [address] [place] [address], [place] [facility] KEON, [email or web address] weeks 120, Center , gestation of [place], [facility] 120, [place] Demarco HERBERT, tel:+ [phone] [place], , [place]. [id number]. tel: tel:+[phone] [facility] Daniel-2 Desi In Womens 4-201 Susan. Taisha SHEIKH, [address] Medical 1522, Center Nimisha, Dr [facility], 120, , [place], [place], tel:[phone] , [place]. tel: [phone] Zoya Pal Previous Low Dec-2 Desi Referring In Womens Transverse 7-201 Susan. Provider: Taisha SHEIKH, C-SectionEncounte 7 [address] r for suprvsn of Medical Desi L, 1522, normal , Center [address] [place] [address], [place], [email or web address] weeks 120, Center , gestation of [facility] 120, [place] Demarco HERBERT, tel:[phone] [place], , [place]. [id number]. tel: tel:+[phone] [facility] Previous Low Nov-2 Desi Referring In Womens Transverse 7-201 Susan. Provider: Taisha SHEIKH, C-SectionEncntr 7 [address] screen for Medical Desi L, 1522, infections w sexl Center 700 dim[address] [place] of [place] [facility] KEON, transmissEncounte [facility] [place] [id number], r for screening [place] [address] [place] [address] for oth EKONDemarco, tel:2 infec/parastc [phone] [place], [id number] [facility] [id number]. for suprvsn of tel: tel: normal , [phone] first trimesterEncounte r for screening of [id number] weeks gestation of Family History Family Member [...] name Insurance type Covered libertarian ID Authorization(s) [facility] [id number] Social History Type Description Quantity Date Captured [...] Robina Rose BOOKED Future Order: Radiology Order Complete OB Ultrasound > 14 Ordered Weeks (34032) Date Type Problem Goal Intervention Status Start [...]
--- OUTSIDE RECORDS SUMMARY | 2017-08-16 07:42 | External Medical Summary | Referral Summary ---
:1985 Author Organization [facility] Address [address] [facility] [address] [place] [address] Care Team Providers Name Role Phone No PCP, States Primary Care Physician Encounter [facility] [id number] Date(s): 10/29/15 - 10/29/15 [facility] [address] [facility] [address] [place] [address]- Discharge Disposition: 01-Home or Self Care Attending Physician: Christine Jimenez MD Admitting Physician: Christine Jimenez MD Vital Signs Most recent to oldest [Reference Range]: 1 Blood Pressure [90-140/60-90 mmHg] 140/96 mmHg (10/29/15 10:24 AM) Problem List Condition Effective Dates Status Health Status Informant Acute pain(Confirmed) Active Anemia(Confirmed) Active Bronchitis(Confirmed) Resolved Previous delivery, Active antepartum.(Confirmed) (Confirmed) 05/26/03 - 2004 Resolved (Confirmed) 01/10/15 - 10/15/15 Resolved Allergies, Adverse Reactions, Alerts No Known Medication Allergies Medications Colace Oral, BID, 0 Refill(s) Start Date: 03/20/15 Status: OrderedColace 100 mg oral capsule 100 mg 1 caps, Oral, BID, # 60 caps, 0 Refill(s) Start Date: 10/15/15 Status: Orderedibuprofen 800 mg oral tablet 800 mg 1 tabs, Oral, q8hr (scheduled), # 45 tabs, 0 Refill(s) Start Date: 10/15/15 Stop Date: 10/15/16 Status: OrderedMetoprolol Tartrate BID, 0 Refill(s) Start Date: 10/29/15 Status: OrderedPrenatal Multivitamins oral tablet tabs, Oral, Daily, 0 Refill(s) Start Date: 03/20/15 Status: Ordered Results No data available for this section Immunizations Vaccine Date Refusal Reason tetanus/diphth/pertuss (Tdap) adult/adol 07/10/15 Procedures Procedure Date Related Diagnosis Body Site delivery only; 10/15/15 Section1 10/15/15 delivery 1auto-populated from documented surgical case Social History Social History Type Response Smoking Status Never smoker Assessment and Plan No data available for this section
--- OUTSIDE RECORDS SUMMARY | 2017-08-16 07:42 | External Medical Summary | Referral Summary ---
:1985 Author Organization [facility] Address [address] [facility] [address] [place] [address] Care Team Providers Name Role Phone No PCP, States Primary Care Physician Encounter [facility] [id number] Date(s): 11/26/15 - 11/26/15 [facility] [address] [facility] [address] [place] [address]- [place] Discharge Diagnosis: exam Discharge Diagnosis: H/O severe pre-eclampsia Discharge Disposition: 01-Home or Self Care Attending Physician: Christine Jimenez MD Admitting Physician: Christine Jimenez MD Vital Signs Most recent to oldest [Reference Range]: 1 Blood Pressure [90-140/60-90 mmHg] 136/80 mmHg (11/26/15 10:40 AM) Problem List Condition Effective Dates Status Health Status Informant Acute pain(Confirmed) Active Anemia(Confirmed) Active Bronchitis(Confirmed) Resolved Previous delivery, Active antepartum.(Confirmed) (Confirmed) 05/26/03 - 2004 Resolved (Confirmed) 01/10/15 - 10/15/15 Resolved Allergies, Adverse Reactions, Alerts No Known Medication Allergies Medications Colace 100 mg oral capsule 100 mg 1 caps, Oral, BID, # 60 caps, 0 Refill(s) Start Date: 10/15/15 Status: OrderedPrenatal Multivitamins oral tablet tabs, Oral, [...]
--- OUTSIDE RECORDS SUMMARY | 2017-08-16 07:42 | External Medical Summary | Continuity of Care Document ---
:1985 Author Organization [facility] Address [address] [place], [place] [id number] Phone Support Name Relationship Address Phone Saroj Rose spouse [address] [phone] [place] [address] Allergies, Adverse Reactions, Alerts Substance Reaction Severity [...] by oth - cord comp, unsp Encounter For Screening For - Streptococcus B 35 weeks gestation of - Previous Low Transverse [...] complicated by oth - cord comp, unsp 33 weeks gestation of - Supervision of other high risk - pregnancies, third trimester Previous Low Transverse - Labor and delivery complicated by oth - cord comp, unsp 29 weeks gestation of - Supervision of other high risk - pregnancies, third trimester Previous Low Transverse - Labor and delivery complicated by oth - cord comp, unsp 33 weeks gestation of - Supervision of other [...] complicated by oth - cord comp, unsp 37 weeks gestation of - Previous Low Transverse [...] Encounter for suprvsn of normal - , third trimester 36 weeks gestation of - Previous Low Transverse - Encounter for suprvsn of normal - , second trimester 18 weeks gestation of - Previous Low Transverse - Labor and delivery complicated by oth - cord comp, unsp 38 weeks gestation of - Previous Low Transverse - Labor and delivery complicated by oth - cord comp, unsp Encounter for suprvsn of normal - , second trimester 23 weeks gestation of - Previous Low Transverse - Labor and delivery complicated by oth - cord comp, unsp 37 weeks gestation of - Labor and delivery complicated by oth - cord comp, unsp 18 weeks gestation of - Procedures Procedure Date OB Visit No Charge Cult, pathgnc orgnsm, screen Results Test Name Date and Time Measure Units Reference Range Abnormal Flag Comments Panel Description: Strep Gp B Culture Strep Gp B Negative Negative Centers for Disease Control Culture 17:01:00 and Prevention (CDC) and [place] Congressof Obstetricians and Gynecologists (ACOG) guidelines for prevention ofperinatal group B streptococcal (GBS) disease specify co-collection ofa vaginal and rectal swab specimen to maximize sensitivity of GBSdetection. Per the CDC and ACOG, swabbing both the lower vagina andrectum substantially increases the yield of detection compared withsampling the vagina alone. .Penicillin G, ampicillin, or cefazolin are indicated for intrapartumprophylaxis of GBS colonization. Reflex susceptibilitytesting should be performed prior to use of clindamycin only on GBSisolates from penicillin-allergic women who are considered a high riskfor anaphylaxis. Treatment with vancomycin without additional testingis warranted if resistance to clindamycin is noted. Advance Directives Directive Yes / No Effective Date File Name Unknown Encounters Encounter Practice Location Reason(s) Diagnoses Date Provider Care Team Description For Visit Members Zoya Pal Previous Low Desi Referring In Womens Transverse 1-201 Susan. Provider: Taisha SHEIKH, C-SectionLabor 8 [address] and delivery Betzy Vitale, 1522, complicated by Center [address], [address], [facility], unsp38 weeks 120, [place] [id number], gestation of Demarco [facility] 120, [place] Demarco [place]ERT, tel:[phone] [place], , [place]. [id number]. tel: tel:[phone] [facility] Supervision of Mahamed-0 Desi Referring In Womens other high risk 4-201 Susan. Provider: Taisha SHEIKH, pregnancies, 8 700 [address] third Medical Desi L, 1522, trimesterPrevious Center [address], Low [address], [facility], C-SectionLabor 120, Center [id number], and delivery Pal, [facility] 120, [place] complicated by Demarco HERBERT, tel: ot cord comp, [phone] [place], unsp37 weeks , [place]. [id number]. gestation of tel: tel:[phone] [facility] Previous Low Mahamed-0 Desi Referring In Womens Ultrasound Transverse 4-201 Susan. Provider: Taisha SHEIKH, C-SectionLabor 8 700 Susan PO Box and delivery Medical Desi L, 1522, complicated by Center [address], areli cord Dr ron, [facility], unsp37 weeks 120, [place] [id number], gestation of [facility] 120, [place] KEON Pal, tel:[phone] [place], , [place]. [id number]. tel: tel:[phone] [facility] Previous Low June-3 Desi Referring In Womens Transverse 0-201 Susan. Provider: Taisha SHEIKH, C-SectionLabor 8 700 Susan PO Box and delivery Medical Desi L, 1522, complicated by Center [address], areli cord Dr ron, [facility], unspEncounter for 120, Center [id number], suprvsn of normal Pal, [facility] 120, [place] , third KEON Pal, tel: [id number] weeks [id number] [place], gestation of , [place]. [id number]. tel: tel:[phone] [facility] Supervision of May-2 Desi Referring In Womens other high risk 3-201 Susan. Provider: Taisha SHEIKH, pregnancies, 8 700 Susan PO Box third Medical Desi L, 1522, trimesterPrevious Center [address], Low Transverse , Johnson HERBERT, C-SectionLabor 120, Center [id number], and delivery Demarco [facility] 120, [place] complicated by Demarco HERBERT, tel:+ oth cord comp, [phone] [place], unspEncounter For , [place]. [id number]. tel: tel: Screening For [phone] Streptococcus B35 weeks gestation of [facility] Supervision of Desi Referring In Womens other high risk 7-201 Susan. Provider: [facility], pregnancies, 8 700 Susan PO Box third Medical Desi L, 1522, trimesterPrevious Center [address], Low Transverse [place], C-SectionLabor 120, Center [id number], and delivery [facility] 120, [place] complicated by Demarco HERBERT, tel:2 oth cord comp, [id number] [place], unsp33 weeks , [place]. [id number]. gestation of tel: tel:[phone] [facility] Supervision of Desi Referring In Womens Ultrasound other high risk 7-201 Susan. Provider: [facility], pregnancies, 8 700 Susan PO Box third Medical Desi L, 1522, trimesterPrevious Center [address], Low Transverse [place], C-SectionLabor 120, Center [id number], and delivery [facility] 120, [place] complicated by Demarco HERBERT, tel: oth cord comp, [phone] [place], unsp33 weeks , [place]. [id number]. gestation of tel: tel:[phone] [facility] Supervision of Desi Referring In Womens other high risk 5-201 Susan. Provider: [facility], pregnancies, 8 700 Susan PO Box third Medical Desi L, 1522, trimesterLabor Center [address], and delivery [place], complicated by 120, Center [id number], oth cord comp, [facility] 120, [place] unsp31 weeks Demarco HERBERT, tel:[phone] gestation of [id number] [place], , [place]. [id number]. tel: tel: [phone] Zoya Pal Supervision of May- Desi Referring In Womens other high risk 1-201 Susan. Provider: [facility], pregnancies, 8 700 Susan PO Box third Medical Desi L, 1522, trimesterPrevious Center [address], Low Transverse , [facility] KEON, C-SectionLabor 120, Center [id number], and delivery [facility] 120, [place] complicated by Demarco HERBERT, tel: oth cord comp, [id number] [place], unsp29 weeks , [place]. [id number]. gestation of tel: tel:[phone] Zoya Pal Supervision of May- Desi Referring In Womens Ultrasound other high risk 1-201 Susan. Provider: Taisha SHEIKH, pregnancies, 8 700 Susan PO Box third Medical Desi L, 1522, trimesterPrevious Center [address], Low Transverse , [facility] KEON, C-SectionLabor 120, Center [id number], and delivery Pal, [facility] 120, [place] complicated by Demarco HERBERT, tel: oth cord comp, [id number] [place], unsp29 weeks , [place]. [id number]. gestation of tel: tel:[phone] Zoya Pal Previous Low Mar-2 Desi Referring In Womens Transverse 6-201 Susan. Provider: Health KORI, C-SectionLabor 8 700 Susan PO Box and delivery Medical Desi L, 1522, complicated by Center [address], oth cord comp, , [facility] KEON, unspEncounter for 120, Center [id number], suprvsn of normal Pal, [place] 120, [place] , second KEON Demarco, tel:+ [id number] weeks [id number] [place], gestation of , [place]. [id number]. tel: tel: [phone] Zoya Pal Previous Low Feb-2 Desi Referring In Womens Transverse 8-201 Susan. Provider: Taisha SHEIKH, C-SectionLabor 8 700 Susan PO Box and delivery Medical Desi L, 1522, complicated by Center [address] [place], spencer cord Dr ron, [facility] Betzy HERBERT, unspEncounter for 120, Center [id number], suprvsn of normal Pal, [place] 120, [place] , second Demarco HERBERT, tel: [id number] weeks [id number] [place], gestation of , [place]. [id number]. tel: tel:[phone] [facility] Previous Low Feb-2 Desi Referring In Womens Ultrasound Transverse 8-201 Susan. Provider: Taisha SHEIKH, C-SectionLabor 8 700 Susan PO Box and delivery Medical Desi L, 1522, complicated by Center [address] [place], [address], [facility] Betzy HERBERT, unsp23 weeks 120, Center [id number], gestation of [facility] 120, [place] KEONDemarco, tel:[phone] [place], , [place]. [id number]. tel: tel:[phone] [facility] Labor and Daniel- Sharma Referring In Womens delivery 4-201 Dianne. Provider: Taisha SHEIKH, complicated by 8 700 Susan PO Box oth cord comp, Medical Desi L, 1522, unsp18 weeks Center [address] [place], gestation of DrJohnson, 120, Center [id number], [facility], [place] KEONDem[place], tel:[phone] [place], , [place]. [id number]. tel: tel:[phone] [facility] Previous Low Daniel-2 Desi Referring In Womens Ultrasound Transverse 4-201 Susan. Provider: Taisha SHEIKH, C-SectionEncounte 8 700 Susan PO Box r for suprvsn of Medical Desi L, 1522, normal , Center [address], second [place], [id number] weeks 120, Center [id number], gestation of Pal, [facility] 120, [place] Demarco HERBERT, tel:[phone] [facility] , [place]. [id number]. tel: tel: [phone] [facility] Previous Low Dec-2 Desi Referring In Womens Transverse 7-201 Susan. Provider: Taisha SHEIKH, C-SectionEncounte 7 700 Susan PO Box r for suprvsn of Medical Desi L, 1522, normal , Center [address] [place], [place] [address]raudel [facility] , [facility] KEON, [id number] weeks 120, [place] [id number], gestation of [facility] 120, [place] Demarco HERBERT, tel:+ [phone] [place], , [place]. [id number]. tel: tel:[phone] [facility] Previous Low Nov-2 Desi Referring In Womens Transverse 7-201 Susan. Provider: Taisha SHEIKH, C-SectionEncntr 7 700 Susan PO Box screen for Medical Desi L, 1522, infections w sexl Center [address] [place] [address], [address], [facility] Betzy HERBERT, transmissEncounte 120, [place] [id number], r for screening [facility] 120, [place] for oth Demarco HERBERT, tel: infec/parastc [phone] [place], [facility] [id number]. for suprvsn of tel: tel:[phone] normal , [phone] first trimesterEncounte r for screening of [id number] weeks gestation of Family History Family Member [...] older Payers Payer name Insurance type Covered alliance party ID Authorization(s) JOSIE MCMANUS [id number] [id number] Social History Type Description Quantity Date Captured Alcohol Use Details No Caffeine Use Details Unknown Tobacco Use Status Unknown Smoking Status Never smoker Vital Signs Date / Height Weight BMI Pulse Blood Temperature Respiratory Body Head BMI Time: Rate Pressure Rate Surface Circumference percentile Area 185.90 33.1 lbs 4 mm[Hg] 4:32 kg/m PM eter (2) Chief Complaint And Reason For Visit Unknown Chief Complaint And Reason For Visit Reason For Referral Reason For Referral Unknown Plan Of Care Date Type Action Status Appointment Robina Rose [facility] C/S BOOKED Appointment Robina Rose BOOKED Future Order: Radiology Order Ultrasound OB Follow-up ([id number]) Ordered Future Order: Radiology Order Ultrasound OB Follow-up ([id number]) Ordered Future Order: Radiology Order Ultrasound, OB Limited ([id number]) Ordered Future Order: Radiology Order Complete OB Ultrasound > 14 Ordered Weeks ([id number]) Future Order: Radiology Order Ultrasound OB Follow-up ([id number]) Ordered Date Type Problem Goal Intervention Status Start [...]
--- OUTSIDE RECORDS SUMMARY | 2017-08-16 07:42 | External Medical Summary | Referral Summary ---
:1985 Author Organization [facility] [place] Address [address] [place] [address] Care Team Providers Name Role Phone Aneesh Yvonne Sampson Primary Care Physician Encounter VC Date(s): 08/27/15 - 08/27/15 [facility] [place] [address] [place] [address]- Discharge Diagnosis: Discharge Disposition: 01-Home or Self Care Attending Physician: Christine Jimenez MD Admitting Physician: Christine Jimenez MD Vital Signs Most recent to oldest [Reference Range]: 1 Blood Pressure [90-140/60-90 mmHg] 114/70 mmHg (08/27/15 2:51 PM) Problem List Condition Effective Dates Status [...]
--- OUTSIDE RECORDS SUMMARY | 2017-08-16 07:43 | External Medical Summary | Continuity of Care Document ---
:1985 Author Organization [facility] Allergies Active Description Code Type Severity Reaction Onset Reported/ Identified Relationship Clinical to Patient Status Yes No Known 01885 3 N/A N/A Drug 0 Allergies Yes No Known NKMA N/A N/A 03/20/2015 Medication Allergies Yes No Known NKMA N/A N/A 03/20/2015 Medication Allergies Yes No Known Aller Unknown N/A 02/15/2016 Allergies gy Yes No Known No Aller N/A N/A 02/15/2016 Allergies Known gy Aller gies Medications Medication Packaging Start Date Stop Date Route Dosage Sig 09/26/2013 multivitamin(mu 6 Daily ltivitamin) 1 tabs 10/05/2013 Oral norgestimate-et 6 1 tabs, hinyl Oral, Daily, estradiol(Sprin take 21 days jake 0.25 mg-35 of active mcg oral tablets then tablet) skip placebos and start the next pack, 28 tabs 03/20/2015 Oral docusate(Colace 6 Oral, BID, 0 ) Refill(s) 20 mL 10/13/2015 IntraDermal 600 mg chloroprocaine( 6 600 mg=20 chloroprocaine mL, 3% IntraDermal, preservative-fr As ee injectable Indicated, solution) PRN: Other (See Comment) 1,000 mL 10/13/2015 IV Dextrose 5% 6 125 mL/hr, in Lactated IV Ringers Injectio(Dextro se 5% in Lactated Ringers 1,000 mL) 30 mL 10/13/2015 Topical mineral 6 30 mL, oil(mineral Topical, As oil) Indicated, PRN: Other (See Comment) 1 mL 10/13/2015 IntraDermal 10 mg lidocaine(Xyloc 6 10 mg=1 mL, shawn-MPF 1% IntraDermal, preservative-fr Once, PRN: ee injectable Other (See solution) Comment) 1,000 mL 10/14/2015 IV Lactated 6 10 mL/hr, IV Ringers Injection(Lacta danyel Ringers 1,000 mL) 30 mL 10/14/2015 Oral sodium 6 30 mL, Oral, citrate-citric Once acid(sodium citrate-citric acid 500 mg-334 mg/5 mL oral solution) 20 mL 10/14/2015 IV Push 2 g ceFAZolin(ceFAZ 6 2 g=20 mL, bk) IV Push, Once 1,000 mL 10/15/2015 IV Dextrose 5% 6 150 mL/hr, in Lactated IV Ringers Injectio(Dextro se 5% in Lactated Ringers 1,000 mL) 1 caps 10/15/2015 Oral 100 mg docusate(Colace 6 100 mg=1 ) caps, Oral, BID 2 mL 10/15/2015 IV Push 4 mg ondansetron(Zof 6 4 mg=2 mL, ran) IV Push, q6hr, PRN: Nausea 1 tabs 10/15/2015 Oral 800 mg ibuprofen(ibupr 6 800 mg=1 ofen) tabs, Oral, q8hr (scheduled) 2 tabs 10/15/2015 Oral oxyCODONE-aceta 6 2 tabs, minophen(Percoc Oral, q4hr, et 5/325 oral PRN: Pain tablet) Severe (7-10) 1 tabs 10/15/2015 Oral oxyCODONE-aceta 6 1 tabs, minophen(oxyCOD Oral, q3hr, ONE-acetaminoph PRN: Pain en 5 mg-325 mg Moderate oral tablet) (4-6) 1 tabs 10/15/2015 Oral 800 mg ibuprofen(ibupr 6 800 mg=1 ofen 800 mg tabs, Oral, oral tablet) q8hr (scheduled), 45 tabs, 0 Refill(s) 1 caps 10/15/2015 Oral 100 mg docusate(Colace 100 mg=1 100 mg oral caps, Oral, capsule) BID, 60 caps, 0 Refill(s) 1 tabs 10/15/2015 Oral oxyCODONE-aceta 6 1 tabs, minophen(oxyCOD Oral, q4hr, ONE-acetaminoph PRN: Pain en 5 mg-325 mg Moderate oral tablet) (4-6), 30 tabs, 0 Refill(s) 10/21/2015 PO 1 each Tablet DAILY 10/21/2015 PO 100 mg Stool Softener DAILY Problems Date Dx Attending Type Code Diagnosis Diagnosed By Coded 06/12/2015 Christine Jimenez Ot R04.0 M 07/10/2015 Christine Jimenez Final Z33.1 state, M incidental 07/26/2015 Christine Jimenez Final Z33.1 state, M incidental 08/05/2015 Sherry Renee Final Z34.90 Encounter for supervision of normal , unspecified, unspecified trimester 08/14/2015 Christine Jimenez Final Z33.1 state, M incidental 08/27/2015 Christine Jimenez Final Z33.1 state, M incidental 09/03/2015 Dino Jimeneza Final Z33.1 state, M incidental 09/10/2015 Dino Jimeneza Final Z33.1 state, M incidental 09/17/2015 Cadenaesa Final Z33.1 state, M incidental 09/24/2015 Cadenaesa Final Z33.1 state, M incidental 10/01/2015 Cadenaesa Final Z33.1 state, M incidental 10/08/2015 Cadenaesa Final Z33.1 state, M incidental 10/18/2015 Barbara,, Final O32.4XX0 Maternal care for Christine high head at term, not applicable or unspecified 10/18/2015 Barbara,, Final O48.0 Post-term Christine 10/18/2015 Barbara,, Final O62.0 Primary inadequate Christine contractions 10/18/2015 Barbara,, Final O66.41 Failed attempted Christine vaginal after previous delivery 10/18/2015 Barbara,, Final Z37.0 Single live Christine 10/18/2015 Barbara,, Final Z3A.40 40 weeks gestation Christine of 11/26/2015 Barbara Christine Final Z39.2 Encounter for M routine follow-up 11/26/2015 BarbaraBlancaChristine Final Z87.59 Personal history of M other complications of , childbirth and the puerperium 03/24/2017 Susan Weeks O34.211 Previous Low L Transverse 03/24/2017 Susan Weeks W Z34.82 Encounter for L suprvsn of normal , second trimester 03/24/2017 Susan Weeks Z3A.18 18 weeks gestation L of 04/28/2017 Susan Weeks O34.211 Previous Low L Transverse 04/28/2017 Susan Weeks O69.89x0 Labor and delivery L complicated by oth cord comp, [facility] 04/28/2017 Susan Weeks Z3A.23 23 weeks gestation L of 06/09/2017 Susan Weeks O09.893 Supervision of L other high risk pregnancies, third trimester 06/09/2017 Susan Weeks O34.211 Previous Low L Transverse 06/09/2017 Susan Weeks O69.89x0 Labor and delivery L complicated by oth cord comp, [facility] 06/09/2017 Susan Weeks Z3A.29 29 weeks gestation L of 07/05/2017 Susan Weeks O09.893 Supervision of L other high risk pregnancies, third trimester 07/05/2017 Susan Weeks O34.211 Previous Low L Transverse 07/05/2017 Susan Weeks O69.89x0 Labor and delivery L complicated by oth cord comp, [facility] 07/05/2017 Susan Weeks Z3A.33 33 weeks gestation L of 08/02/2017 Susan Weeks O34.211 Previous Low L Transverse 08/02/2017 Susan Weeks O69.89x0 Labor and delivery L complicated by oth cord comp, [facility] 08/02/2017 Susan Weeks Z3A.37 37 weeks gestation L of Procedures Code Description Performed By Performed On 3002 OB Code 3002 07/10/2015 28470 Glucose; post 07/10/2015 glucose dose (includes glucose) 03455 Blood count; 07/10/2015 complete (CBC), automated (Hgb, Hct, RBC, WBC and platelet count) and automated differential WBC count 08244 Antibody 07/10/2015 screen, RBC, each serum technique 57099 Immunization 07/10/2015 administration (includes percutaneous, intradermal, subcutaneous, or intramuscular injections); 1 vaccine (single or combination vaccine/toxoid).. 79306 Tetanus, 07/10/2015 diphtheria toxoids and acellular pertussis vaccine (Tdap), when administered to individuals 7 years or older, for intramuscular use 3002 OB Code 3002 07/26/2015 3002 OB Code 3002 08/05/2015 3002 OB Code 3002 08/14/2015 3002 OB Code 3002 08/27/2015 3002 OB Code 3002 09/03/2015 05130 Infectious 09/03/2015 agent detection by nucleic acid (DNA or RNA); Streptococcus, group B, amplified probe technique 3002 OB Code 3002 09/10/2015 3002 OB Code 3002 09/17/2015 3002 OB Code 3002 09/24/2015 3002 OB Code 3002 10/01/2015 3002 OB Code 3002 10/08/2015 Introduction 10/14/2015 [id number] of Other Hormone into Peripheral Vein, Percutaneous Approach 3004 11/26/2015 Services 3004 19426 Ultrasnd exam 03/24/2017 of preg uterus, compl 73436 Ultrasnd exam, 04/28/2017 preg uterus, limited 34536 Echo exam of 04/28/2017 heart 59628 Doppler color 04/28/2017 flow mapping 99796 Ultrasnd preg 06/09/2017 uterus, flwup/repeat 24115 Ultrasnd preg 07/05/2017 uterus, flwup/repeat 36641 Ultrasnd preg 08/02/2017 uterus, flwup/repeat Results Test Result Range CBC With Platelet and Differential - 10/13/15 19:57 Absolute Basophils 0.01 10*3 0.00-0.20 Absolute Eosinophils 0.07 10*3 0.00-0.50 Absolute Lymphocytes 1.42 10*3 0.80-3.30 Absolute Monocytes 0.56 10*3 0.30-1.00 Absolute Neutrophils 6.03 10*3 1.90-7.00 Basophils 0 % 0-2 Eosinophils 1 % 0-4 HCT 34.0 % 37.0-47.0 HGB 12.0 g/dL 12.0-16.0 Immature Granulocytes 1.0 % 0.0-1.0 Lymphocytes 17 % 20-46 MCH 32.9 pg 27.0-32.0 MCHC 35.3 g/dL 32.0-36.0 MCV 93.2 fL 82.0-99.0 Monocytes 7 % 4-11 MPV 11.3 fL 9.4-12.4 Neutrophils 74 % 51-75 Nucleated RBC Automated 0.0 /100 WBC Platelet Count 170 K/uL 150-400 RBC 3.65 10*6/uL 4.00-5.20 RDW 12.7 % 11.5-14.5 WBC 8.2 K/uL 4.8-10.8 ABO and Rh - 10/13/15 19:57 ABO and Rh NA Antibody Screen - 10/13/15 19:57 Antibody Screen NA Comprehensive Metabolic Panel (CMP) - 10/14/15 12:12 Albumin 2.7 g/dL 3.5-4.8 Alkaline Phosphatase 124 U/L 26-104 ALT (SGPT) 28 U/L 14-54 Anion Gap 7 NA 3-20 AST (SGOT) 28 U/L 15-41 Bilirubin Total 0.7 mg/dL 0.2-1.2 BUN 6 mg/dL 4-20 Calcium 8.3 mg/dL 8.6-10.0 Chloride 111 mEq/L 99-109 CO2 19 mEq/L 22-32 Creatinine 0.77 mg/dL 0.44-1.03 Globulin 2.7 g/dL 1.9-4.3 Glucose 88 mg/dL 70-100 Potassium 3.8 mEq/L 3.6-5.1 Protein 5.4 g/dL 6.1-7.9 Sodium 137 mEq/L 136-144 LDH - 10/14/15 12:12 LDH 151 U/L 98-192 Uric Acid - 10/14/15 12:12 Uric Acid 6.5 mg/dL 2.6-8.0 eGFR - 10/14/15 12:12 eGFR >60 NA >60 CBC With Platelet No Differential - 10/14/15 12:13 HCT 37.2 % 37.0-47.0 HGB 13.0 g/dL 12.0-16.0 MCH 32.7 pg 27.0-32.0 MCHC 34.9 g/dL 32.0-36.0 MCV 93.7 fL 82.0-99.0 MPV 10.9 fL 9.4-12.4 Platelet Count 183 K/uL 150-400 RBC 3.97 10*6/uL 4.00-5.20 RDW 12.2 % 11.5-14.5 WBC 9.2 K/uL 4.8-10.8 PTT/PT (INR) - 10/14/15 12:13 INR 1.0 NA 0.9-1.2 PTT 26.5 seconds 25.0-35.0 Protein/Creatinine Ratio, Urine - 10/14/15 15:33 Creatinine mg/dL, Urine 65 mg/dL Prot/Creat Ratio, Urine 0.2 NA Protein mg/dL, Urine 10 mg/dL 0-9 Hemoglobin and Hematocrit - 10/16/15 03:37 HCT 30.3 % 37.0-47.0 HGB 10.3 g/dL 12.0-16.0 L100.0050 - 10/21/15 20:09 WBC - WHITE BLOOD COUNT 7.6 T/MM3 4.5-11.0 RED BLOOD COUNT 3.66 M/MM3 4.00-5.20 HGB - HEMOGLOBIN 12.1 GM/DL 12-16 HCT - HEMATOCRIT 34.5 % 36-46 MEAN CORPUSCULAR VOLUME 94.3 UM3 80-100 MEAN CORPUSCULAR HGB 33.1 UUG 26-34 MEAN CORPUSCULAR HGB CONC(MCHC 35.1 GM/DL 31-37 RDW STANDARD DEVIATION 39.0 FL 36.9-50.2 PLT - PLATELET COUNT 219 T/MM3 130-400 MEAN PLATELET VOLUME 9.5 UM3 9.4-12.4 NEUTROPHILS % (AUTO) 73.8 % 33-66 LYMPHOCYTES % (AUTO) 16.6 % 23-45 MONOCYTES % (AUTO) 6.8 % 0-9.0 EOSINOPHILS % (AUTO) 1.6 % 0-4 BASOPHILS % (AUTO) 0.3 % 0-2 IMMATURE GRANULOCYTE % (AUTO) 0.9 % 0.0-0.5 NEUTROPHILS # (AUTO) 5.6 T/MM3 1.8-7.7 LYMPHOCYTES # (AUTO) 1.3 T/MM3 1-4.8 MONOCYTES # (AUTO) 0.5 T/MM3 0-0.8 EOSINOPHILS # (AUTO) 0.1 T/MM3 0-0.5 BASOPHILS # (AUTO) 0.0 T/MM3 0-0.2 IMMATURE GRANULOCYTE # (AUTO) 0.07 T/MM3 0.00-0.03 L200.0020 - 10/21/15 20:09 ICTERUS < 2 0-7 HEMOLYSIS < 15 0-25 L160.0105 - 10/21/15 20:09 INR 0.94 0.99-1.21 L200.2000 - 10/21/15 20:09 MAGNESIUM 1.8 MG/DL 1.6-2.3 L200.1848 - 10/21/15 20:09 TROPONIN I < 0.012 ng/ml 0-0.12 L200.1880 - 10/21/15 20:09 PROBNP 718 PG/ML 0-175 L200.3850 - 10/21/15 20:09 THYROID STIM HORMONE-TSH 4.15 MIU/L 0.47-4.68 L600.0100 - 10/21/15 20:22 SPECIMEN TYPE, URINE CLEANCATCH-MIDSTREAM COLOR,URINE YELLOW YELLOW TURBIDITY, URINE CLEAR CLEAR SPECIFIC GRAVITY,URINE 1.010 1.015-1.025 PH, URINE - DIPSTICK 6.5 5.0-8.0 LEUKOCYTE ESTERASE ,URINE NEGATIVE NEGATIVE NITRITE,URINE NEGATIVE NEGATIVE PROTEIN,URINE - DIPSTICK NEGATIVE NEGATIVE GLUCOSE, URINE - DIPSTICK NEGATIVE NEGATIVE KETONES,URINE - DIPSTICK NEGATIVE NEGATIVE UROBILINOGEN,URINE 0.2 EU/DL NORMAL BILIRUBIN,URINE - DIPSTICK NEGATIVE NEGATIVE BLOOD, URINE TRACE-INTACT NEGATIVE URINE MICRO MICROSCOPIC NOT IND. Encounters ACCT No. Visit Discharge Status Pt. Type Provider Facility Loc./Unit Complaint Date/Time [id number] 05/27/2015 05/27/2015 CLS Outpatiyaneth Jimenez [facility] 214 13:41:00 23:59:59 [facility] [id number] 10/13/2015 10/17/2015 DIS Inpatient Barbara,, Via [facility] J4W scheduled 237 18:48:00 [id number]/16/2015 Document [id number] 05:17:07 Registrat ion [id number] 10/15/2015 Document 12202 05:17:58 Registrat ion [id number] 10/14/2015 Document 92253 05:15:25 Registrat ion [id number] 03/21/2015 Document 24797 05:17:19 Registrat ion [id number] 12/19/2014 Document 40734 09:28:01 Registrat ion [id number] 12/19/2014 Document 30216 09:20:09 Registrat ion [id number] 11/26/2015 11/26/2015 DIS Outpatien Barbara, Via [facility] S 6 WKS PP 211 10:35:00 23:59:00 brenda [facility] [id number] 10/29/2015 10/29/2015 DIS Outpatien Barbara, Via [facility] S 2 WEEK PP 861 10:18:00 23:59:00 brenda Veras [facility] [id number] 10/08/2015 10/08/2015 DIS Outpatien Barbara, Via [facility] S ob recheck 888 14:53:00 23:59:00 brenda [facility] [id number] 10/01/2015 10/01/2015 DIS Outpatien Barbara, Via [facility] S 40 wk ob 875 14:48:00 23:59:00 brenda Magana [facility] [id number] 09/24/2015 09/24/2015 DIS Outpatien Barbara, [facility] S 39 wk ob 813 14:58:00 23:59:00 [id number] 09/17/2015 09/17/2015 DIS Outpatien Barbara, Via [facility] S 38 wk ob 781 14:50:00 23:59:00 t [facility] [id number] 09/10/2015 09/10/2015 DIS Outpatien Barbara, Via [facility] S 37 wk ob 763 14:53:00 23:59:00 t [facility] [id number] 09/03/2015 09/03/2015 DIS Outpatien Barbara, Via [facility] S 36 wk ob 695 14:50:00 23:59:00 t [facility] [id number] 08/27/2015 08/27/2015 DIS Outpatien Barbara, Via [facility] S 35 wk ob 673 14:47:00 23:59:00 t [facility] [id number] 08/14/2015 08/14/2015 DIS Outpatien Barbara, Via [facility] S 33 wk ob 658 08:36:00 23:59:00 t [facility] [id number] 08/05/2015 08/05/2015 DIS Outpatien White, Via [facility] S 31 wk ob 597 14:58:00 23:59:00 t Sherry [facility] [id number] 07/26/2015 07/26/2015 DIS Outpatien Barbara, Via [facility] S 29 wk ob 336 14:44:00 23:59:00 t [facility] [id number] 07/10/2015 07/10/2015 DIS Outpatien Barbara, Via [facility] S 27 wk ob 215 14:55:00 23:59:00 t Christine Magana Eda Neena [facility] [id number] 06/05/2015 06/05/2015 DIS Outpatien Barbara, Via [facility] S 22 wks ob 493 14:51:00 23:59:00 t Christine [facility] [id number] 05/01/2015 05/01/2015 DIS Outpatien Barbara, Via [facility] S 16 wks ob 793 14:49:00 23:59:00 [facility]da [facility] [id number] 04/05/2015 04/05/2015 DIS Outpatien Mcdonald, Via [facility] S NPV, EARLY 080 09:27:00 23:59:00 brenda Chaudhary MFM SCREENING Clinic SHIKHA 8.18.16 [id number] 03/20/2015 03/20/2015 DIS Outpatien Barbara, Via [facility] S GAS TREATER NOB 085 14:52:00 23:59:00 brenda Chaudhary OBG 01/10/15 Clinic [id number] 10/13/2015 Document 237 18:48:00 Registrat ion [id number] 06/07/2015 Document 870 00:42:00 Registrat ion [id number] 02/15/2016 02/15/2016 DIS Emergency Demarco MERCER [facility].NEW 451 12:23:00 13:38:00 [facility] [id number] 10/21/2015 10/21/2015 DIS Emergency SPENCER Pal ED 711 19:28:00 22:14:00 ELIUD Prajapati MD [place] [id number] 08/16/2017 PEN Preadmit ARMANDO Pal C section 600 09:30:00 SUSAN SPRAGUE [facility] [id number] 08/02/2017 08/02/2017 CLS Outpatien Armando, 16:00:00 23:59:59 t Susan L [id number] 08/02/2017 08/02/2017 CLS Outpatien Armando, 15:45:00 23:59:59 t Susan L [id number] 07/30/2017 07/30/2017 CLS Outpatien Armando, 09:16:00 23:59:59 t Susan L [id number] 07/28/2017 07/28/2017 CLS Outpatien Armando, 16:15:00 23:59:59 t Susan L [id number] 07/21/2017 07/21/2017 CLS Outpatien Armando, 16:15:00 23:59:59 t Susan L [id number] 07/05/2017 07/05/2017 CLS Outpatien Armando, 16:00:00 23:59:59 t Susan L [id number] 07/05/2017 07/05/2017 CLS Outpatien Armando, 15:45:00 23:59:59 t Susan L [id number] 06/23/2017 06/23/2017 CLS Outpatien Armando, 16:30:00 23:59:59 t Susan L [id number] 06/14/2017 06/14/2017 CLS Outpatien Armando, 08:34:00 23:59:59 t Susan L [id number] 06/09/2017 06/09/2017 CLS Outpatien Armando, 14:30:00 23:59:59 t Susan L [id number] 06/09/2017 06/09/2017 CLS Outpatien Armando, 14:15:00 23:59:59 t Susan L [id number] 05/24/2017 05/24/2017 CLS Outpatien Armando, 10:15:00 23:59:59 t Susan L [id number] 04/28/2017 04/28/2017 CLS Outpatien Armando, 15:30:00 23:59:59 t Susan L [id number] 04/28/2017 04/28/2017 CLS Outpatien Armando, 15:15:00 23:59:59 t Susan L [id number] 04/05/2017 04/05/2017 CLS Outpatien Armando, 09:10:00 23:59:59 t Susan L [id number] 03/24/2017 03/24/2017 CLS Outpatien Sharma, 16:00:00 23:59:59 t Dianne K [id number] 03/24/2017 03/24/2017 CLS Outpatien Armando, 15:45:00 23:59:59 t Susan L [id number] 03/24/2017 03/24/2017 CLS Outpatien Armando, 11:10:00 23:59:59 t Susan L [id number] 02/24/2017 02/24/2017 CLS Outpatien Armando, 16:05:00 23:59:59 t Susan L [id number] 02/01/2017 02/01/2017 CLS Outpatien Armando, 11:41:00 23:59:59 t Susan L [id number] 01/25/2017 01/25/2017 CLS Outpatien Armando, 15:00:00 23:59:59 t Susan Vitale [id number] 08/09/2017 Document 15:30:00 Registrat ion
--- OUTSIDE RECORDS SUMMARY | 2017-08-16 07:43 | External Medical Summary | Continuity of Care Document ---
:1985 Author Organization [facility] Address [address] [place], [place] [phone] Phone Support Name Relationship Address Phone Saroj Rose spouse [address] [phone] [place] [address] Allergies, Adverse Reactions, Alerts Substance Reaction Severity [...] Effective Dates (start - stop) Clinical Status Labor and delivery complicated by oth - cord comp, unsp 18 weeks gestation of - Previous Low [...] second trimester 18 weeks gestation of - Procedures Procedure [...] Medical Desi L, 1522, unsp18 weeks Center [address] [place] [address], gestation of [place], 120, Center , Pal, [facility] 120, [place] Demarco HER[place]ERT, tel:[phone] [place], , [place]. [id number]. tel: tel:[phone] [facility] Previous Low Daniel-2 Desi Referring In Womens Ultrasound Transverse 4-201 Susan. Provider: Taisha SHEIKH, C-SectionEncounte 8 700 Susan [address] r for suprvsn of Medical Desi L, 1522, normal , Center [address] [place] [address], [facility] [place], [id number] weeks 120, Center , gestation of [place], [facility] 120, [place] Demar[place], tel:[phone] [place], , [place]. [id number]. tel: tel:[phone] [facility] Previous Low Jan-2 Desi Referring In Womens Transverse 7-201 Susan. Provider: Taisha SHEIKH, C-SectionEncounte 7 700 Susan PO Box r for suprvsn of Medical Desi L, 1522, normal , Center [address] [place] [address], [facility] [place], weeks 120, Center [id number], gestation of [facility] 120, [place] KEONDemarco, tel:[phone] [place], , [place]. [id number]. tel: tel:[phone] [facility] Previous Low Dec-2 Desi Referring In Womens Transverse 7-201 Susan. Provider: Taisha SHEIKH, C-SectionEncntr 7 700 Susan PO Box screen for Medical Desi L, 1522, infections w sexl Center [address] [place] [address], mode of [place], transmissEncounte 120, Center [id number], r for screening [facility] 120, [place] for oth Demarco HERBERT, tel: infec/parastc [phone] [place], [id number] [facility] [id number]. for suprvsn of tel: tel: normal , [phone] first trimesterEncounte r for screening of [id number] weeks gestation of Family History Family Member [...] Insurance type Covered constitution party ID Authorization(s) [facility] [id number] Social History Type Description Quantity Date Captured Alcohol Use Details No Caffeine Use Details coffee 3 cups per day Tobacco Use Status Never smoked tobacco Smoking Status Never smoker Vital Signs Date / Height Weight BMI Pulse Blood Temperature Respiratory Body Head BMI Time: Rate Pressure Rate Surface Circumference percentile Area 163.00 29.0 119/ lbs 5 mm[Hg] 4:19 kg/m PM eter (2) Chief Complaint And Reason For Visit Unknown Chief Complaint And Reason For Visit Reason For Referral Reason For Referral Unknown Plan Of Care Date Type Action Status Appointment Robina Rose BOOKED Appointment Robina Rose BOOKED Future Order: Radiology Order Complete OB Ultrasound > 14 Ordered Weeks ([id number]) Date Type Problem Goal Intervention Status Start [...]
--- OUTSIDE RECORDS SUMMARY | 2017-08-16 07:43 | External Medical Summary | Referral Summary ---
:1985 Author Organization [facility] Address [address] [place] [address] Care Team Providers Name Role Phone No PCP, Pt States Primary Care Physician Encounter VC Date(s): 10/13/15 - 10/17/15 [facility] [address] [place] [address] Discharge Diagnosis: S/P repeat low transverse Discharge Disposition: 01-Home or Self Care Attending Physician: Christine Jimenez MD Admitting Physician: Christine Jimenez MD Vital Signs Most recent to oldest [Reference Range]: 1 Temperature Oral [35.8-37.3 degC] 36.7 degC (10/17/15 4:40 PM) Peripheral Pulse Rate [60-100 bpm] 79 bpm (10/13/15 7:13 PM) Heart Rate Monitored [60-100 bpm] 77 bpm (10/17/15 5:15 PM) Respiratory Rate [14-20 br/min] 16 br/min (10/17/15 4:40 PM) Blood Pressure [90-140/60-90 mmHg] 148/97 mmHg *HI* (10/17/15 5:15 PM) Mean Arterial Pressure, Cuff 104 mmHg (10/15/15 3:00 AM) SpO2 97 % (10/15/15 3:00 AM) Problem List Condition Effective Dates Status [...] Start Date: 10/15/15 Stop Date: 10/15/16 Status: OrderedOintment Base topical ointment See Instructions, Mupirocin ointment 2% 15g, Betamethasone 0.1% 15g, Clotrimazole powder 2%. Apply to nipples after each feeding for 5-7 days, # 30 g , 5 Refill(s) Start Date: 10/17/15 Status: OrderedoxyCODONE-acetaminophen 5 mg-325 mg oral tablet 1 tabs, Oral, q4hr, Pain Moderate (4-6), # 30 tabs, 0 Refill(s) Start Date: 10/15/15 Stop Date: 10/15/16 Status: OrderedPrenatal Multivitamins oral tablet tabs, Oral, Daily, 0 Refill(s) Start Date: 03/20/15 Status: Ordered Results Hematology Most recent to oldest [Reference Range]: 1 WBC [4.8-10.8 10*3/uL] 9.2 10*3/uL (10/14/15 12:13 PM) RBC [4.00-5.20] 3.97 *LOW* (10/14/15 12:13 PM) Hgb [12.0-16.0 gm/dL] 10.3 gm/dL *LOW* (10/16/15 3:37 AM) Hct [37.0-47.0 %] 30.3 % *LOW* (10/16/15 3:37 AM) MCV [82.0-99.0 fL] 93.7 fL (10/14/15 12:13 PM) MCH [27.0-32.0 pg] 32.7 pg *HI* (10/14/15 12:13 PM) MCHC [32.0-36.0 gm/dL] 34.9 gm/dL (10/14/15 12:13 PM) RDW [11.5-14.5 %] 12.2 % (10/14/15 12:13 PM) Platelet [150-400 10*3/uL] 183 10*3/uL (10/14/15 12:13 PM) MPV [9.4-12.4 fL] 10.9 fL (10/14/15 12:13 PM) Immature Granulocytes [0.0-1.0 %] 1.0 % (10/13/15 7:57 PM) Neutrophils [51-75 %] 74 % (10/13/15 7:57 PM) Lymphocytes [20-46 %] 17 % *LOW* (10/13/15 7:57 PM) Monocytes [4-11 %] 7 % (10/13/15 7:57 PM) Eosinophils [0-4 %] 1 % (10/13/15 7:57 PM) Basophils [0-2 %] 0 % (10/13/15 7:57 PM) Neutro Absolute [1.90-7.00 10*3] 6.03 10*3 (10/13/15 7:57 PM) Lymph Absolute [0.80-3.30 10*3] 1.42 10*3 (10/13/15 7:57 PM) [place] Absolute [0.30-1.00 10*3] 0.56 10*3 (10/13/15 7:57 PM) Eos Absolute [0.00-0.50 10*3] 0.07 10*3 (10/13/15 7:57 PM) Baso Absolute [0.00-0.20 10*3] 0.01 10*3 (10/13/15 7:57 PM) Nucleated RBC Automated [0 /100 WBC] 0.0 /100 WBC (10/13/15 7:57 PM) Coagulation Most recent to oldest [Reference Range]: 1 INR [0.9-1.2] 1.0 (10/14/15 12:13 PM) PTT [25.0-35.0 seconds] 26.5 seconds (10/14/15 12:13 PM) Chemistry Most recent to oldest [Reference Range]: 1 Sodium Lvl [136-144 mEq/L] 137 mEq/L (10/14/15 12:12 PM) Potassium Lvl [3.6-5.1 mEq/L] 3.8 mEq/L (10/14/15 12:12 PM) Chloride [99-109 mEq/L] 111 mEq/L *HI* (10/14/15 12:12 PM) CO2 [22-32 mEq/L] 19 mEq/L *LOW* (10/14/15 12:12 PM) AGAP [3-20] 7 (10/14/15 12:12 PM) BUN [4-20 mg/dL] 6 mg/dL (10/14/15 12:12 PM) Glucose Lvl [70-100 mg/dL] 88 mg/dL (10/14/15 12:12 PM) Creatinine Lvl [0.44-1.03 mg/dL] 0.77 mg/dL (10/14/15 12:12 PM) eGFR [>60] >60 1 (10/14/15 12:12 PM) Calcium Lvl [8.6-10.0 mg/dL] 8.3 mg/dL *LOW* (10/14/15 12:12 PM) Albumin Lvl [3.5-4.8 gm/dL] 2.7 gm/dL *LOW* (10/14/15 12:12 PM) Total Protein [6.1-7.9 gm/dL] 5.4 gm/dL *LOW* (10/14/15 12:12 PM) Globulin [1.9-4.3 gm/dL] 2.7 gm/dL (10/14/15 12:12 PM) ALT [14-54 U/L] 28 U/L (10/14/15 12:12 PM) AST [15-41 U/L] 28 U/L (10/14/15 12:12 PM) Alk Phos [26-104 U/L] 124 U/L *HI* (10/14/15 12:12 PM) Bili Total [0.2-1.2 mg/dL] 0.7 mg/dL 2 (10/14/15 12:12 PM) LDH [98-192 U/L] 151 U/L (10/14/15 12:12 PM) Uric Acid [2.6-8.0 mg/dL] 6.5 mg/dL (10/14/15 12:12 PM) 1Result Comment: Multiply eGFR results by 1.21 for race.2Result Comment: Naproxen, specifically the metabolite O-desmethylnaproxen, may cause spurious elevation in Total Bilirubin levels.Blood Bank Results Most recent to oldest [Reference Range]: 1 ABO/Rh O POS (10/13/15 7:57 PM) Antibody Screen Tube NEG (10/13/15 7:57 PM) Immunizations Vaccine Date Refusal Reason tetanus/diphth/pertuss (Tdap) adult/adol 07/10/15 Procedures Procedure Date Related Diagnosis Body Site delivery only; 10/15/15 Section1 10/15/15 delivery 1auto-populated from documented surgical case Social History Social History Type Response Smoking Status Never smoker Assessment and Plan No data available for this section
--- OUTSIDE RECORDS SUMMARY | 2017-08-16 07:43 | External Medical Summary | Continuity of Care Document ---
:1985 Author Organization [facility] Address [address] [place], [place] [address] Phone Support Name Relationship Address Phone Saroj Rose spouse [address] [phone] [place] [address] Allergies, Adverse Reactions, Alerts Substance Reaction Severity [...] Procedures Procedure Date OB Visit No Charge - SERVICE DELIVERY ANALYST Immuniz admnin, 1 vac, sngl/combo 19 Yrs + TDAP VACCINE >7 IM Results Test Name Date and Time Measure Units Reference Range Abnormal Flag Comments Unknown Advance Directives Directive Yes / No Effective Date File Name Unknown Encounters Encounter Practice Location Reason(s) Diagnoses Date Provider Care Team Description For Visit Members Associates Pal Supervision of Desi Referring In Womens other high risk 7-201 Susan. Provider: Health PA, pregnancies, 8 [address] third Medical Desi L, 1522, trimesterPrevious Center [address], Low Transverse [place], C-SectionLabor 120, Center [id number], and delivery Pal, Johnson 120, [place] complicated by Demarco HERBERT, tel:+ oth cord comp, [id number] [place], unsp33 weeks , [place]. [id number]. gestation of tel: tel: [phone] Zoya Pal Supervision of June-0 Desi Referring In Womens Ultrasound other high risk 7-201 Susan. Provider: Health PA, pregnancies, 8 700 [address] third Medical Desi L, 1522, trimesterPrevious Center [address], Low Transverse [place], C-SectionLabor 120, Center [id number], and delivery Demarco [place] 120, [place] complicated by Demarco HERBERT, tel:+ oth cord comp, [id number] [place], unsp33 weeks , [place]. [id number]. gestation of tel: tel:+ [phone] Zyoa Pal Supervision of May-2 Desi Referring In Womens other high risk 5-201 Susan. Provider: Health PA, pregnancies, 8 700 [address] third Medical Desi L, 1522, trimesterLabor Center [address], and delivery Johnson [place], complicated by 120, Center [id number], oth cord comp, Johnson Pal 120, [place] unsp31 weeks Demarco HERBERT, tel: gestation of [id number] [place], , [place]. [id number]. tel: tel: [phone] Zoya Pal Supervision of May- Desi Referring In Womens other high risk 1-201 Susan. Provider: Health PA, pregnancies, 8 700 [address] third Medical Desi L, 1522, trimesterPrevious Center [address] [place], Low Transverse [place], C-SectionLabor 120, Center [id number], and delivery Demarco [place] 120, [place] complicated by Demarco HERBERT, tel:+ oth cord comp, [id number] [place], unsp29 weeks , [place]. [id number]. gestation of tel: tel: [phone] [facility] Supervision of Desi Referring In Womens Ultrasound other high risk 1-201 Susan. Provider: Health PA, pregnancies, 8 700 [address] third Medical Desi L, 1522, trimesterPrevious Center 700 [place], Low Transverse Dr, [facility] KEON, C-SectionLabor 120, Center [id number], and delivery Pal, Johnson 120, [place] complicated by KEONDemarco, tel:+ oth cord comp, [id number] [place], unsp29 weeks , [place]. [id number]. gestation of tel: tel:+ [phone] [facility] Previous Low Mar-2 Desi Referring In Womens Transverse 6-201 Susan. Provider: Health KORI, C-SectionLabor 8 700 Susan PO Box and delivery Medical Desi L, 1522, complicated by Center [address], [facility] cord Dr ron, [facility] KEON, unspEncounter for 120, Center [id number], suprvsn of normal Apl, Johnson 120, [place] , second Demarco HERBERT, tel: [id number] weeks [id number] [place], gestation of , [place]. [id number]. tel: tel:+ [phone] Zoya Pal Previous Low Feb-2 Desi Referring In Womens Transverse 8-201 Susan. Provider: Health KORI, C-SectionLabor 8 700 Susan PO Box and delivery Medical Desi L, 1522, complicated by Center 700 [place], areli cord Dr ron, [facility] KEON, unspEncounter for 120, Center [id number], suprvsn of normal Pal, Johnson 120, [place] , second Demarco HERBERT, tel:+ [id number] weeks [id number] [place], gestation of , [place]. [id number]. tel: tel:+ [phone] [facility] Previous Low Feb-2 Desi Referring In Womens Ultrasound Transverse 8-201 Susan. Provider: Taisha SHEIKH, C-SectionLabor 8 700 Susan PO Box and delivery Medical [facility] L, 152, complicated by Center [address], spencer cord ron, , Johnson HERBERT, unsp23 weeks 120, Center , gestation of [place], Johnson 120, [place] Demarco HERBERT, tel:[phone] [place], , [place]. [id number]. tel: tel:[phone] [facility] Labor and Daniel-2 Sharma Referring In Womens delivery 4-201 Dianne. Provider: Taisha SHEIKH, complicated by 8 700 Susan PO Box oth cord comp, [facility] L, 152, unsp18 weeks Center [address] [place] [address], gestation of Johnson [place], 120, Center [id number], [place], [facility] 120, [place] KEON Demarco, tel:[phone] [place], , [place]. [id number]. tel: tel:[phone] [facility] Previous Low Daniel-2 Desi Referring In Womens Ultrasound Transverse 4-201 Susan. Provider: Taisha SHEIKH, C-SectionEncounte 8 700 Susan PO Box r for suprvsn of Medical Desi L, 152, normal , [address] [place] [address], second Johnson Montejo, [id number] weeks 120, Center [id number], gestation of Pal, Johnson 120, [place] Demarco HERBERT, tel:[phone] [place], , [place]. [id number]. tel: tel:[phone] [facility] Previous Low Jan-2 Desi Referring In Womens Transverse 7-201 Susan. Provider: Taisha SHEIKH, C-SectionEncounte 7 700 Susan PO Box r for suprvsn of Medical Desi L, 152, normal , Center [address] [place] [address], second Johnson [place], [id number] weeks 120, Center [id number], gestation of Pal, [facility] 120, [place] KEONDemarco, tel:[phone] [place], , [place]. [id number]. tel: tel: [phone] [facility] Previous Low Dec- Desi Referring In Womens Transverse 7-201 Susan. Provider: Beth Gregorio-SectionEncntr 7 700 Susan PO Box screen for Medical Desi L, 1522, infections w sexl Center [address], mode of Johnson Monte[place] Medical KEON, transmissEncounte 120, [place] [id number], r for screening [place] [address], for oth Demarco HERBERT, tel: infec/parastc [phone] [place], [facility] . [id number]. for suprvsn of tel: tel: normal , [phone] first trimesterEncounte r for screening of [id number] weeks gestation of Family History Family Member [...] name Insurance type Covered libertarian ID Authorization(s) [facility] [id number] [facility] [id number] Social History Type Description Quantity Date Captured Alcohol Use Details No Caffeine Use Details coffee 3 cups per day Tobacco Use Status Never smoked tobacco Smoking Status Never smoker Vital Signs Date / Height Weight BMI Pulse Blood Temperature Respiratory Body Head BMI Time: Rate Pressure Rate Surface Circumference percentile Area 182.30 32.4 lbs 9 mm[Hg] 4:37 kg/m PM eter (2) Chief Complaint And Reason For Visit Unknown Chief Complaint And Reason For Visit Reason For Referral Reason For Referral Unknown Plan Of Care Date Type Action Status Appointment Robina Rose BOOKED Appointment Robina Rose BOOKED Appointment Robina Rose BOOKED Appointment Robina Rose BOOKED Appointment Robina Rose BOOKED Future Order: Radiology Order Ultrasound OB Follow-up ([id number]) Ordered Future Order: Radiology Order Ultrasound OB Follow-up ([id number]) Ordered Future Order: Radiology Order Ultrasound, OB Limited ([id number]) Ordered Future Order: Radiology Order Complete OB Ultrasound > 14 Ordered Weeks ([id number]) Date Type Problem Goal Intervention Status Start [...]
--- OUTSIDE RECORDS SUMMARY | 2017-08-16 07:43 | External Medical Summary | Continuity of Care Document ---
:1985 Author Organization [facility] Address [address] [place], [place] [id number] Phone Support Name Relationship Address Phone Saroj Rose spouse [address] [phone] [place] [address] Allergies, Adverse Reactions, Alerts Substance Reaction Severity [...] comp, unsp 33 weeks gestation of - Previous Low Transverse [...] complicated by oth - cord comp, unsp 35 weeks gestation of - Supervision of other [...] Womens other high risk 3-201 Susan. Provider: Health PA, pregnancies, 8 700 Susan [address] third Medical Desi L, 1522, trimesterPrevious Center 700 [place], Low Transverse Johnson [place], C-SectionLabor 120, Center [id number], and delivery Demarco [place] 120, [place] complicated by Demarco HERBERT, tel:+2 oth cord comp, [id number] [place], unsp35 weeks , [place]. [id number]. gestation of tel:+03-31 tel:[phone] Zoya Pal Supervision of June-0 Desi Referring In Womens other high risk 7-201 Susan. Provider: Health PA, pregnancies, 8 700 Susan [address] Box third Medical Desi L, 1522, trimesterPrevious Center 700 [place], Low Transverse Johnson [place], C-SectionLabor 120, Center [id number], and delivery Pal, Johnson 120, [place] complicated by Demarco HERBERT, tel:+2 oth cord comp, [id number] [place], unsp33 weeks , [place]. [id number]. gestation of tel:+03-31 tel:+ [phone] oZya Pal Supervision of June-0 Desi Referring In Womens Ultrasound other high risk 7-201 Susan. Provider: Health PA, pregnancies, 8 700 Susan PO Box third Medical Desi L, 1522, trimesterPrevious Center 700 [place], Low Transverse Johnson [place], C-SectionLabor 120, Center [id number], and delivery Demarco [place] 120, [place] complicated by Demarco HERBERT, tel:+2 oth cord comp, [id number] [place], unsp33 weeks , [place]. [id number]. gestation of tel:+03-31 tel:+ [phone] Zoya Pal Supervision of May-2 Desi Referring In Womens other high risk 5-201 Susan. Provider: Health PA, pregnancies, 8 700 Susan PO Box third Medical Desi L, 1522, trimesterLabor Center [address] [place] [address], and delivery Johnson [place], complicated by 120, Center [id number], oth cord comp, Demarco Johnson 120, [place] unsp31 weeks KEON Demarco, tel:+ gestation of [id number] [place], , [place]. [id number]. tel: tel: [phone] Zoya Pal Supervision of May- Desi Referring In Womens other high risk 1-201 Susan. Provider: Health PA, pregnancies, 8 700 Susan PO Box third Medical Desi L, 1522, trimesterPrevious Center 700 [place], Low Transverse , [facility] KEON, C-SectionLabor 120, Center [id number], and delivery [facility] 120, [place] complicated by Demarco HERBERT, tel:+ oth cord comp, [id number] [place], unsp29 weeks , [place]. [id number]. gestation of tel: tel:+ [phone] Zoya Pal Supervision of May- Desi Referring In Womens Ultrasound other high risk 1-201 Susan. Provider: Health PA, pregnancies, 8 700 Susan PO Box third Medical Desi L, 1522, trimesterPrevious Center 700 [place], Low Transverse , [facility] KEON, C-SectionLabor 120, Center [id number], and delivery [facility] 120, [place] complicated by Demarco HERBERT, tel: oth cord comp, [id number] [place], unsp29 weeks , [place]. [id number]. gestation of tel: tel: [phone] Zoya Pal Previous Low Mar-2 Desi Referring In Womens Transverse 6-201 Susan. Provider: Health KORI, C-SectionLabor 8 700 Susan PO Box and delivery Medical Desi L, 1522, complicated by Center 700 [place], areli cord compDr [facility] Betzy HERBERT, unspEncounter for 120, [place] [id number], suprvsn of normal Pal, [facility] 120, [place] , second KEON Demarco, tel:+ [id number] weeks [id number] [place], gestation of , [place]. [id number]. tel: tel:+ [phone] Zoya Pal Previous Low Feb-2 Desi Referring In Womens Transverse 8-201 Susan. Provider: Taisha SHEIKH, C-SectionLabor 8 700 Susan PO Box and delivery Medical Desi L, 1522, complicated by Center 700 [place], spencer cord Dr ron, [facility] Betzy HERBERT, unspEncounter for 120, Center [id number], suprvsn of normal Pal, [facility] 120, [place] , second Demarco HERBERT, tel:+[phone] [id number] weeks [id number] [place], gestation of , [place]. [id number]. tel: tel:[phone] [facility] Previous Low Feb-2 Desi Referring In Womens Ultrasound Transverse 8-201 Susan. Provider: Taisha SHEIKH, C-SectionLabor 8 700 Susan PO Box and delivery Medical Desi L, 1522, complicated by Center [facility] [place] Nimisha, [address], [facility] Betzy HERBERT, unsp23 weeks 120, Center [id number], gestation of [facility] 120, [place] KSDemarco, tel: [phone] [place], , [place]. [id number]. tel: tel:[phone] [facility] Labor and Mar- Sharma Referring In Womens delivery 4-201 Dianne. Provider: Taisha SHEIKH, complicated by 8 700 Susan PO Box oth cord comp, Medical Desi L, 1522, unsp18 weeks Center [place]oc [place], gestation of Dr [facility] Betzy HERBERT, 120, Center [id number], [facility], [place] KSDemarco, tel: [phone] [place], , [place]. [id number]. tel: tel:+[phone] [facility] Previous Low Mar- Desi Referring In Womens Ultrasound Transverse 4-201 Susan. Provider: Taisha SHEIKH, C-SectionEncounte 8 700 Susan PO Box r for suprvsn of Medical Desi L, 1522, normal , Center [facility] [place] Nimisha, [address], [id number] weeks 120, Center [id number], gestation of Demarco [facility] 120, [place] Demarco HERBERT, tel: [phone] [place], , [place]. [id number]. tel: tel: [phone] [facility] Previous Low Dec-2 Desi Referring In Womens Transverse 7-201 Susan. Provider: Taisha SHEIKH, C-SectionEncounte 7 700 Susan PO Box r for suprvsn of Medical Desi L, 1522, normal , Center [facility] [place] Nimisha [facility] , [facility], [id number] weeks 120, [place] [id number], [facility], [place] Demarco HERBERT, tel: [phone] [place], , [place]. [id number]. tel: tel:+ [phone] [facility] Previous Low Nov-2 Desi Referring In Womens Transverse 7-201 Susan. Provider: Taisha SHEIKH, C-SectionEncntr 7 700 Susan PO Box screen for Medical Desi L, 1522, infections w sexl Center [address] [place] [address], mode of , [facility], transmissEncounte 120, [place] [id number], r for screening [facility] 120, [place] for oth Demarco HERBERT, tel: infec/parastc [id number] [place], [facility] , [place]. [id number]. for suprvsn of tel: tel:[phone] normal , [phone] first trimesterEncounte r for screening of [id number] weeks gestation of Family History Family Member [...] Insurance type Covered green party ID Authorization(s) [facility] [id number] [facility] [id number] Social History Type Description Quantity Date Captured [...] Appointment Robina Rose BOOKED Appointment Robina Rose HIC R C/S BOOKED Future Order: Radiology Order Ultrasound OB Follow-up ([id number]) Ordered Future Order: Radiology Order Ultrasound OB Follow-up ([id number]) Ordered Future Order: Radiology Order Ultrasound, OB Limited ([id number]) Ordered Future Order: Radiology Order Complete OB Ultrasound > 14 Ordered Weeks ([id number]) Date Type Problem Goal Intervention Status Start [...]
--- OUTSIDE RECORDS SUMMARY | 2017-08-16 07:43 | External Medical Summary | Referral Summary ---
:1985 Author Organization [facility] Address [address] [facility] [address] [place] [address] Care Team Providers Name Role Phone Aneesh Yvonne Sampson Primary Care Physician Encounter [facility] [id number] Date(s): 07/10/15 - 07/10/15 [facility] [address] [facility] [address] [place] [address]- Discharge Diagnosis: Discharge Disposition: 01-Home or Self Care Attending Physician: Christine Jimenez MD Admitting Physician: Christine Jimenez MD Vital Signs Most recent to oldest [Reference Range]: 1 Blood Pressure [90-140/60-90 mmHg] 114/68 mmHg (07/10/15 3:08 PM) Problem List Condition Effective Dates Status [...] oldest [Reference Range]: 1 WBC [4.8-10.8 10*3/uL] 6.9 10*3/uL (07/10/15 4:09 PM) RBC [4.00-5.20] 3.56 *LOW* (07/10/15 4:09 PM) Hgb [12.0-16.0 gm/dL] 11.8 gm/dL *LOW* (07/10/15 4:09 PM) Hct [37.0-47.0 %] 34.0 % *LOW* (07/10/15 4:09 PM) MCV [82.0-99.0 fL] 95.5 fL (07/10/15 4:09 PM) MCH [27.0-32.0 pg] 33.1 pg *HI* (07/10/15 4:09 PM) MCHC [32.0-36.0 gm/dL] 34.7 gm/dL (07/10/15 4:09 PM) RDW [11.5-14.5 %] 12.9 % (07/10/15 4:09 PM) Platelet [150-400 10*3/uL] 166 10*3/uL (07/10/15 4:09 PM) MPV [8.8-14.8 fL] 10.0 fL (07/10/15 4:09 PM) Immature Granulocytes [0.0-1.0 %] 0.4 % (07/10/15 4:09 PM) Neutrophils [51-75 %] 76 % *HI* (07/10/15 4:09 PM) Lymphocytes [20-46 %] 16 % *LOW* (07/10/15 4:09 PM) Monocytes [4-11 %] 6 % (07/10/15 4:09 PM) Eosinophils [0-4 %] 1 % (07/10/15 4:09 PM) Basophils [0-2 %] 0 % (07/10/15 4:09 PM) Neutro Absolute [1.90-7.00 10*3] 5.26 10*3 (07/10/15 4:09 PM) Lymph Absolute [0.80-3.30 10*3] 1.13 10*3 (07/10/15 4:09 PM) [place] Absolute [0.30-1.00 10*3] 0.41 10*3 (07/10/15 4:09 PM) Eos Absolute [0.00-0.50 10*3] 0.09 10*3 (07/10/15 4:09 PM) Baso Absolute [0.00-0.20 10*3] 0.00 10*3 (07/10/15 4:09 PM) Chemistry Most recent to oldest [Reference Range]: 1 Gluc 1 hour [70-140 mg/dL] 119 mg/dL 1 (07/10/15 4:09 PM) 1Result Comment: An initial one hour screen resulting in a glucose of >140 mg /dL identifies around 80% of women with GDM. The yield is increased to 90% by using a cutoff of >130 mg/dL. Diagnosis of GDM is based on a 100 gram, 3 hour oral glucose tolerance test.Blood Bank Results Most recent to oldest [Reference Range]: 1 Antibody Screen Tube NEG (07/10/15 4:09 PM) Immunizations Vaccine Date Refusal Reason tetanus/diphth/pertuss (Tdap) adult/adol 07/10/15 Procedures Procedure Date Related Diagnosis Body Site delivery Social History Social History Type Response Smoking Status Never smoker Assessment and Plan No data available for this section
--- OUTSIDE RECORDS SUMMARY | 2017-08-16 07:43 | External Medical Summary | Continuity of Care Document ---
:1985 Author Organization [facility] Address [address] [place], [place] [id number] Phone Support Name Relationship Address Phone Saroj Rose spouse [address] [phone] [place] [address] Allergies, Adverse Reactions, Alerts Substance Reaction Severity [...] Procedures Procedure Date OB Visit No Charge Glucose test Hemoglobin count, colorimetric Hematocrit blood count Venpnctr fngr/heel/ear stick routne Results Test Name Date and Time Measure Units Reference Range Abnormal Flag Comments Panel Description: Glucose [Mass/volume] in Serum or Plasma --1 hour post 50 g glucose PO Gestational Diabetes 119 mg/dL 65-139 According to ADA, a glucose Screen 11:29:00 threshold of >139 mg/dL after 50-gramload identifies approximately 80% of women with gestationaldiabetes mellitus, while the sensitivity is further increased toapproximately 90% by a threshold of >129 mg/dL. Panel Description: Hemoglobin [Mass/volume] in Blood Hemoglobin 11:29:00 11.2 g/dL 11.1-15.9 Panel Description: Hematocrit [Volume Fraction] of Blood by Automated count Hematocrit 11:29:00 33.7 % 34.0-46.6 L Advance Directives Directive Yes / No Effective Date File Name Unknown Encounters Encounter Practice Location Reason(s) Diagnoses Date Provider Care Team Description For Visit Members Zoya Pla Supervision of Desi Referring In Womens other high risk 1-201 Susan. Provider: Health PA, pregnancies, 8 700 Susan [address] third Medical Desi L, 1522, trimesterPrevious Center 700 [place], Low Transverse , [facility] Betzy HERBERT, C-SectionLabor 120, Center [id number], and delivery Pal, [facility] 120, [place] complicated by Demarco HERBERT, tel:+ oth cord comp, [phone] [place], unsp29 weeks , [place]. [id number]. gestation of tel:+03-31 tel:[phone] [facility] Supervision of Desi Referring In Womens Ultrasound other high risk 1-201 Susan. Provider: Health KORI, pregnancies, 8 700 Susan [address] third Medical Desi L, 1522, trimesterPrevious Center 700 [place], Low Transverse , [facility] Betzy HERBERT, C-SectionLabor 120, Center [id number], [facility] [place] complicated by Demarco HERBERT, tel:+ oth cord comp, [phone] [place], unsp29 weeks , [place]. [id number]. gestation of tel: tel:[phone] [facility] Previous Low Mar-2 Desi Referring In Womens Transverse 6-201 Susan. Provider: Taisha SHEIKH, C-SectionLabor 8 700 Susan PO Box and delivery Medical Desi L, 1522, complicated by Center [facility] [address], [facility] Betzy HERBERT, unspEncounter for 120, Center [id number], suprvsn of normal Pal, [facility] 120, [place] , second KEON Demarco, tel:+2 [id number] weeks [id number] [place], gestation of , [place]. [id number]. tel: tel:[phone] [facility] Previous Low Feb-2 Desi Referring In Womens Transverse 8-201 Susan. Provider: Taisha SHEIKH, C-SectionLabor 8 700 Susan PO Box and delivery Medical Desi L, 1522, complicated by Center [address], [facility] KEON, unspEncounter for 120, Center [id number], suprvsn of normal Pal, [facility] 120, [place] , second KEON Demarco, tel: [id number] weeks [id number] [place], gestation of , [place]. [id number]. tel: tel:[phone] [facility] Previous Low Feb-2 Desi Referring In Womens Ultrasound Transverse 8-201 Susan. Provider: Taisha SHEIKH, C-SectionLabor 8 700 Susan PO Box and delivery Medical Desi L, 1522, complicated by Center 700 [place], oth cord comp, , [facility] Betzy HERBERT, unsp23 weeks 120, Center [id number], gestation of Pal, [facility] 120, [place] KEON Demarco, tel:[phone] [place], , [place]. [id number]. tel: tel:[phone] Zoya Pal Labor and Daniel-2 Sharma Referring In Womens delivery 4-201 Dianne. Provider: Taisha SHEIKH, complicated by 8 700 Susan PO Box oth cord comp, Medical Desi L, 1522, unsp18 weeks Center 700 [place], gestation of DrJohnson, 120, Center [id number], [facility], [place] KEONDemarco, tel:[phone] [place], , [place]. [id number]. tel: tel:[phone] Zoya Pal Previous Low Daniel-2 Desi Referring In Womens Ultrasound Transverse 4-201 Susan. Provider: Taisha SHEIKH, C-SectionEncounte 8 700 Susan PO Box r for suprvsn of Medical Desi L, 1522, normal , Center 700 [place], [facility] Johnson [place], [id number] weeks 120, Center [id number], gestation of Pal, [facility] 120, [place] KEON Demarco, tel:[phone] [place], , [place]. [id number]. tel: tel:[phone] [facility] Previous Low Dec-2 Desi Referring In Womens Transverse 7-201 Susan. Provider: Taisha SHEIKH, C-SectionEncounte 7 700 Susan PO Box r for suprvsn of Medical Desi L, 1522, normal , Center 700 [place], [facility] , Johnson HERBERT, weeks 120, Center [id number], gestation of [facility], [place] Demarco HERBERT, tel:+ [phone] [place], , [place]. [id number]. tel: tel: [phone] [facility] Previous Low Desi Referring In Womens Transverse 7-201 Susan. Provider: Health KORI, C-SectionEncntr 7 700 Susan PO Box screen for Medical Desi L, 1522, infections w sexl Center 700 [place], mode of [place], transmissEncounte 120, [place] [id number], r for screening [facility] 120, for oth Demarco HERBERT, tel:+ infec/parastc [phone] [place], [facility] [place]. [id number]. for suprvsn of tel: tel:[phone] normal , [phone] first trimesterEncounte r for screening of [id number] weeks gestation of Family History Family Member [...] older Payers Payer name Insurance type Covered democrat ID Authorization(s) LEAH MCMANUS [id number] Social History Type Description Quantity Date Captured Alcohol Use Details No Caffeine Use Details Unknown Tobacco Use Status Unknown Smoking Status Never smoker Vital Signs Date / Height Weight BMI Pulse Blood Temperature Respiratory Body Head BMI Time: Rate Pressure Rate Surface Circumference percentile Area 175.40 31.2 130/78 -2018 lbs 7 mm[Hg] 10:20 kg/m AM eter (2) Chief Complaint And Reason For Visit Unknown Chief Complaint And Reason For Visit Reason For Referral Reason For Referral Unknown Plan Of Care Date Type Action Status Appointment Juancarlos Rosei BOOKED Appointment Robina Rose BOOKED Appointment Robina Rose BOOKED Appointment Rboina Rose BOOKED Appointment Robina Rose BOOKED Appointment RoseRobina BOOKED Future Order: Radiology Order Ultrasound OB Follow-up ([id number]) Ordered Future Order: Radiology Order Ultrasound, OB Limited ([id number]) Ordered Future Order: Radiology Order Complete OB Ultrasound > 14 Ordered Weeks ([id number]) Date Type Problem Goal Intervention Status Start [...]
[2017-08-16] MEDS ORDERED: CITRIC ACID/SODIUM CITRATE 30ml PO ONE (07:48)
[2017-08-16] MEDS ORDERED: FAMOTIDINE PB 20 MG/50 ML BAG IV ONE (07:48)
[2017-08-16] MEDS ORDERED: CEFAZOLIN PREMIX (MC ONLY) 2 GM/50 ML BAG IV ONE (08:00)
[2017-08-16] MEDS ORDERED: SALINE FLUSH 10ml SYRINGE ONE (08:05)
[2017-08-16] MEDS ORDERED: EPHEDRINE 50mg/ml INJECTION ONE (08:05)
[2017-08-16] MEDS ORDERED: PHENYLEPHRINE INJ 10 MG/ML VIAL IV ONE (08:05)
[2017-08-16 08:24] VITALS: BMI 32.1
--- NOTE | 2017-08-16 08:26 | Anesthesia Preoperative Report ---
Anesthesia Epidural/Spinal Rec - Date and Time Date: 08/16/17 Procedure: Plan: CSE - Vital Signs /Para: P:2 - Medictaions & Allergies Allergies/Adverse Reactions: Allergies Allergy/AdvReac Type Severity Reaction Status Date / Time No Known Allergies Allergy Unverified 02/15/16 12:46 - Home Medications Home Medications: Home Medications Medication Instructions Recorded Confirmed Type Docusate Sodium [Stool Softener] 100 mg PO DAILY #0 10/21/15 08/10/17 History Pnv95/Ferrous Fumarate/FA 1 tab PO DAILY #0 10/21/15 08/10/17 History [ Tablet] - Medical History Other History: Reports: Now - Surgical History Reproductive Surgery/Treatment: Reports: Section - Social History Smoking Status: Never smoker Substance Use Type: does not use Alcohol Intake Frequency: does not drink Hx Chewing Tobacco Use: No - Pertinent Findings Lab Data: CBC and BMP 08/16/17 08:12 EKG Rhythm: Normal Sinus Rhythm - Physical Exam Respiratory Exam: lungs clear Cardiovascular Exam: regular rate and rhythm, no murmur - Airway Assessment Mallampati Score: II TMD: 3 Fingerbreadths Neck Extension: good Overall Assessment: no airway concerns - ASA ASA Score: 2 - Discussion Discussion: Discussed risks/options/alternatives of anesthesia and questions answered. Patient consents. Nursing pain assessment noted. Anesthesia Discussion: spouse Attestation Statement: Prior to the delivery of any anesthetic medication, I examined the patient, developed the plan, obtained the patient's consent and discussed the risk and benefits of the procedure with the patient/guardian.
[2017-08-16] MEDS ORDERED: FentaNYL 100 MCG/2 ML INJECTION ONE (08:48)
[2017-08-16] MEDS ORDERED: BUPIVACAINE 0.75%/DEXTROSE 8.5% SPINAL 2 ML AMPULE IJ ONE (08:49)
[2017-08-16] MEDS ORDERED: GLYCOPYRROLATE 0.4 MG/2 ML INJECTION ONE (09:38)
[2017-08-16] MEDS: LR 1,000 ML IV SCH ×3 (09:47→10:41)
[2017-08-16] MEDS: OXYTOCIN BOLUS BAG 30 UNIT/500 ML ML IV SCH ×2 (09:48→10:06)
[2017-08-16] MEDS ORDERED: MORPHINE SULFATE PF 5mg/10ml INJ (Duramorph) ONE (10:17)
[2017-08-16] MEDS: D5LR 1,000 ML IV SCH ×2 (10:30→23:28)
[2017-08-16] MEDS ORDERED: NALOXONE 2 MG/2 ML INJECTION PFS IVP PRN (12:06)
[2017-08-16] MEDS ORDERED: SIMETHICONE 80 MG CHEWABLE TABLET PO PRN (12:06)
[2017-08-16] MEDS ORDERED: HYDROCORTISONE 2.5% CREAM 30gm RECTALLY PRN (12:06)
[2017-08-16] MEDS ORDERED: DiphenhydrAMINE 25 MG CAPSULE PO PRN (12:06)
[2017-08-16] MEDS ORDERED: OXYTOCIN DRIP 30 UNIT/500 ML ML IV SCH (12:06)
[2017-08-16] MEDS ORDERED: ACETAMINOPHEN 500 MG TABLET PO PRN (12:06)
[2017-08-16] MEDS ORDERED: CALCIUM CARBONATE Chewable 500mg TABLET PO PRN (12:06)
--- NOTE | 2017-08-16 12:17 | Operative Note ---
DATE OF SURGERY 08/16/2017 PREOPERATIVE DIAGNOSIS 1. Term , previous x2. 2. Two vessel cord. POSTOPERATIVE DIAGNOSIS 1. Term , previous x2. 2. Two vessel cord. PROCEDURE Repeat low transverse section. SURGEON Susan Weeks MD REGIONAL EDUCATION MANAGER Dariusz Ramos, ANESTHESIA Combo spinal epidural SECURITIES UNDERWRITER Aquilino Dominguez CRNA EBL 600 mL DESCRIPTION OF PROCEDURE Ms. Rose was brought to the OR and given regional analgesia to good effect. She was placed on the OR table in the comfortable supine position with left lateral displacement. A Harris catheter was placed to dependent drain. The abdomen was prepped and draped in the usual sterile fashion. A Pfannenstiel skin incision was made through the patient's prior scar. This was carried down to fascia. Fascia was incised transversely. This was tented up and bluntly and sharply dissected free of rectus muscles. Rectus muscles were bluntly divided. Peritoneum was tented up and entered sharply. This was then extended vertically. The bladder blade was inserted. The bladder was noted to be well below our area of operation. A low transverse uterine incision was made with a sharp knife. There was clear amniotic fluid. Baby was delivered in the vertex presentation without difficulty. Baby was bulb suctioned on the abdomen immediately after delivery of the head, then again further. Cord was doubly clamped and cut. The baby was given to the pediatric team for care. This is a liveborn male with Apgars of 9/9. He weighed 7 pounds, 2.8 ounces. The placenta was then expressed, intact. It had a normal configuration and a normal -appearing ??three-vessel?? cord. The uterus was exteriorized. We then swept the uterine cavity clear of membranes. Myometrial incision was closed with a running locking 0 Monocryl. We inspected carefully for hemostasis. This was under good control as it was throughout the remainder of the procedure. Uterus , tubes and ovaries were noted to be grossly normal and returned to the abdominal cavity. Peritoneum was then reapproximated with running nonlocking 2- 0 Vicryl. Fascia was reapproximated with a running nonlocking 0 Vicryl. Skin edges were reapproximated with a subcuticular style 3-0 undyed Vicryl. The wound was dressed with Steri-Strips and a sterile dressing. Counts were correct postoperatively x2. The urine remained clear and free-flowing throughout the procedure. Mrs. Rose has been transferred to recovery. She is in stable condition. [facility]
[2017-08-16] MEDS: IBUPROFEN 800 MG TABLET PO SCH ×2 (13:32→21:10)
[2017-08-16] MEDS: SIMETHICONE 80 MG CHEWABLE TABLET PO SCH ×3 (13:32→22:23)
[2017-08-16] MEDS: HYDROCODONE/APAP 5mg/325mg TABLET PO PRN ×2 (15:50→20:18)
[2017-08-16] MEDS ORDERED: TRAMADOL 50 MG TABLET PO PRN (17:28)
--- NOTE | 2017-08-16 20:44 | Anesthesia Postoperative Note ---
- Date and Time Date: 08/16/17 Time: 20:44 - Status Patient Participated in Evaluation: Patient Participated in Person Vital Signs: Temperature 97.9 F 08/16/17 18:13 Pulse Rate 73 08/16/17 18:13 Respiratory Rate 18 08/16/17 18:13 Blood Pressure 122/78 08/16/17 18:13 Pulse Oximetry 99 08/16/17 18:13 Respiratory Function: Airway Patent Cardiovascular Function: Regular Pulse EKG: Sinus Rhythm Mental Status: Alert and Oriented Pain Intensity: 0 Hydration: Taking PO Fluids Complications During Recover: None Apparent - Follow-Up Instructions Instructions: Per Surgeon
[2017-08-17] MEDS: HYDROCODONE/APAP 5mg/325mg TABLET PO PRN ×3 (01:18→12:08)
[2017-08-17] MEDS: IBUPROFEN 800 MG TABLET PO SCH ×3 (06:11→22:30)
--- NOTE | 2017-08-17 08:12 | OB/GYN Progress Note ---
OB-PP Progress Note - General POD:: POD1 - Subjective Date: 08/17/17 Lochia: Moderate Pain: controlled Voiding: voiding Nausea or Vomiting Present: No - Objective Vital Signs: Last Vital Signs Temp 98.0 F 08/17/17 01:19 Pulse 80 08/17/17 04:05 Resp 18 08/17/17 04:05 BP 125/76 08/17/17 04:05 Pulse Ox 97 08/17/17 04:05 Urine Output: good General: alert and oriented Abdomen: fundus firm Incision: clean, dry, intact Extremities: non-tender Laboratory: Laboratory Results - last 24 hr 08/16/17 08/16/17 08/16/17 08:12 08:12 15:55 WBC 7.6 10.3 RBC 3.66 L 3.43 L Hgb 12.3 11.5 L Hct 35.3 L 32.8 L MCV 96.4 95.6 MCH 33.6 33.5 MCHC 34.8 35.1 RDW Std Deviation 44.4 43.9 Plt Count 156 143 MPV 10.2 9.9 Immature Gran % (Auto) 0.5 Neut % (Auto) 67.8 H Lymph % (Auto) 23.3 [place] % (Auto) 7.0 Eos % (Auto) 1.3 Baso % (Auto) 0.1 Neut # (Auto) 5.1 Lymph # (Auto) 1.8 [place] # (Auto) 0.5 Eos # (Auto) 0.1 Baso # (Auto) 0.0 Abs Immat Gran (auto) 0.04 H Blood Type O Positive Antibody Screen Negative - Assessment Assessment: Repeat C/S - Plan Plan: routine care (Patient reports that Percocet worked the best with her last c/s. Disc with RN. Will ask Dr. giles for Percocet order. )
[2017-08-17] MEDS: SIMETHICONE 80 MG CHEWABLE TABLET PO SCH ×4 (10:15→22:31)
[2017-08-17] MEDS: DOCUSATE CALCIUM 240 MG CAPSULE PO SCH (10:15)
[2017-08-18 04:42] VITALS: RESP 18
[2017-08-18] MEDS: HYDROCODONE/APAP 5mg/325mg TABLET PO PRN (07:16)
--- NOTE | 2017-08-18 08:10 | OB/GYN Progress Note ---
OB-PP Progress Note - General PPD2 - Subjective Date: 08/18/17 Lochia: Minimal Pain: controlled Voiding: voiding Nausea or Vomiting Present: No - Objective Vital Signs: Last Vital Signs Temp 97.8 F 08/18/17 04:22 Pulse 67 08/18/17 04:22 Resp 18 08/18/17 04:22 BP 133/79 08/18/17 04:22 Pulse Ox 98 08/18/17 04:22 - Assessment Assessment: SP, Repeat C/S - Plan Expected date of discharge: 08/18/17 Will change to Percocet, plan dismissal later today if pain controlled. Q&A. Pt currently.
[2017-08-18] MEDS: IBUPROFEN 800 MG TABLET PO SCH (09:11)
[2017-08-18] MEDS: DOCUSATE CALCIUM 240 MG CAPSULE PO SCH (09:12)
[2017-08-18] MEDS: SIMETHICONE 80 MG CHEWABLE TABLET PO SCH ×2 (09:12→13:56)
[2017-08-18 12:21] VITALS: BP 117/71; PULSE 85; TEMP 98.2; O2SAT 96
[2017-08-18] MEDS ORDERED: Oxycodone/Acetaminophen 5/325 1 TAB PO PRN (12:26)
== END 2017-08-18 14:40 | disposition home or self-care (01) | DRG 766 ==
LOC: MC 07:32
PROVIDERS: ADMIT Obstetrics & Gynecology; ATTEND Obstetrics & Gynecology